=== PATIENT | female | born 1970 | race Hispanic/Latino ===

== ENCOUNTER 2019-06-24 16:44 | Emergency (ER) | payer SELFPAY | END 2019-06-24 17:41 | disposition home or self-care (01) | LOC: EDH 16:44 | DX: J20.9 Acute bronchitis, unspecified (principal); E11.9 Type 2 diabetes mellitus without complications; I10 Essential (primary) hypertension; E78.00 Pure hypercholesterolemia, unspecified; Z72.0 Tobacco use; Z88.0 Allergy status to penicillin | CPT/HCPCS: 93005 ==

== ENCOUNTER 2020-03-01 15:13 | Inpatient (IN) | payer SELFPAY ==
[~2020-03-01] VITALS: Ht 167.6 cm; Wt 71.1 kg
[2020-03-01 15:46] LABS: BASOPHILS % (AUTO) 0.6 % (0.0-5.0); EOSINOPHILS % (AUTO) 0.2 % (0.0-8.0); HEMATOCRIT 32.7 % (36-48); LYMPHOCYTES % (AUTO) 23.9 % (21.0-51.0); MEAN CORPUSCULAR HEMOGLOBIN 28.4 pg (27.0-33.0); MEAN CORPUSCULAR HGB CONC 32.4 g/dL (32.0-36.0); MEAN CORPUSCULAR VOLUME 87.7 fL (79-99); MONOCYTES % (AUTO) 4.6 % (3.0-13.0); NEUTROPHILS % (AUTO) 69.6 % (40.0-77.0); RED BLOOD CELL COUNT(AUTO) 3.73 MIL/uL (4.00-5.50); RED CELL DISTRIBUTION WIDTH 13.6 % (11.0-15.5)
[2020-03-01 15:53] LABS: APPEARANCE,URINE CLOUDY (CLEAR); BILIRUBIN,URINE NEGATIVE (NEGATIVE); COLOR,URINE YELLOW (YELLOW); GLUCOSE, URINE (UA) >=1000 mg/dL (NEGATIVE); KETONES,URINE NEGATIVE (NEGATIVE); LEUKOCYTE ESTERASE ,URINE MODERATE (NEGATIVE); NITRATE,URINE POSITIVE (NEGATIVE); OCCULT BLOOD,URINE MODERATE (NEGATIVE); PROTEIN,URINE TRACE mg/dL (NEGATIVE); UROBILINOGEN,URINE 0.2 mg/dL (0.2-1.0)
[2020-03-01 16:03] LABS: BACTERIA,URINE Few /HPF (None Seen); SQUAMOUS EPITHELIAL CELL,UR Rare /HPF (0-2); WBC,URINE 26-50 /HPF (0-1)
[2020-03-01 16:08] LABS: ALBUMIN 2.2 g/dL (3.5-5.0); BILIRUBIN,TOTAL 0.3 mg/dL (0.2-1.0); CREATININE 3.3 mg/dL (0.5-1.5); POTASSIUM 4.7 mmol/L (3.5-5.1); TOTAL PROTEIN, SERUM 10.6 g/dL (6.0-8.3)
[2020-03-01 16:11] LABS: PLATELET COUNT (AUTO) 831 K/uL (130-400)
[2020-03-01] MEDS ORDERED: LEVOFLOXACIN 500 MG/D5W 100 ML 100 ML ONE (17:45)
[2020-03-01] MEDS ORDERED: INSULIN HUMULIN R 100 UNIT/ML 3ML ONE ×2 (17:46→19:42)
[2020-03-01 17:53] LABS: ABG OXYGEN SATURATION 39.1 % (95.0-99.0); BASE EXCESS,VENOUS BLOOD GAS -9.1 (-2.0-3.0); HCO3,VENOUS BLOOD GAS 17.2 (21.0-28.0); PCO2,VENOUS BLOOD GAS 39 (32-45); PH,VENOUS BLOOD GAS 7.265 (7.350-7.450)
[2020-03-01] MEDS ORDERED: DEXTROSE 5 %-0.45 % NACL 1,000 ML IV PRN (18:47)
[2020-03-01] MEDS: SODIUM CHLORIDE 0.9% 1000ML 1,000 ML IV SCH ×2 (18:47→23:47)
[2020-03-01] MEDS ORDERED: INSULIN HUMULIN R 100 UNIT/ML 3ML IV SCH (19:00)
[2020-03-01] MEDS ORDERED: POTASSIUM CHLORIDE 10MEQ/100ML 100 ML IV PRN (19:00)
[2020-03-01 19:14] LABS: HEMOGLOBIN A1C 14.4 % (4.0-6.0)
[2020-03-01] MEDS ORDERED: MEROPENEM 1 GM VIAL IVP SCH (19:15)
[2020-03-01] MEDS ORDERED: LACTULOSE 20 GM/30 ML UDCUP PO PRN (19:15)
[2020-03-01] MEDS ORDERED: DIPHENHYDRAMINE HCL 25 MG CAPSULE PO PRN (19:15)
[2020-03-01] MEDS ORDERED: ACETAMINOPHEN 325 MG TAB PO PRN ×2 (19:15)
[2020-03-01] MEDS ORDERED: ONDANSETRON HCL 4 MG/2 ML VIAL IV PRN (19:15)
[2020-03-01] MEDS ORDERED: NITROGLYCERIN 0.4 MG SL TAB SL PRN (19:15)
[2020-03-01 19:30] LABS: CREATININE 2.7 mg/dL (0.5-1.5); MAGNESIUM 1.9 mg/dL (1.80-2.40); POTASSIUM 3.6 mmol/L (3.5-5.1)
[2020-03-01 19:34] LABS: INR 1.05 (0.85-1.15); PROTHROMBIN TIME 11.3 SEC (9.6-11.6)
[2020-03-01 19:40] LABS: CREATINE KINASE, TOTAL 13 U/L (21-232); MYOGLOBIN 38 ng/mL (10-92); TROPONIN I < 0.04 ng/mL (0.00-0.06)
[2020-03-01] MEDS ORDERED: LACTULOSE 20 GM/30 ML UDCUP ONE (19:40)
[2020-03-01] MEDS ORDERED: SODIUM CHLORIDE 0.9% 100 ML IV ONE (19:43)
[2020-03-01 19:51] LABS: ABG HCO3 16.4 mmol/L (21.0-28.0); ABG OXYGEN SATURATION 97.6 % (95.0-99.0); ABG PCO2 31 mmHg (32-45)
[2020-03-01] MEDS ORDERED: LACTULOSE 20 GM/30 ML UDCUP PO SCH (20:30)
[2020-03-01] MEDS ORDERED: LINEZOLID 600 MG/ISO-OSM 300 ML IV SCH (20:30)
[2020-03-01] MEDS ORDERED: HEPARIN SODIUM 5000UNIT/ML 1ML VIAL ONE (20:38)
[2020-03-01] MEDS ORDERED: FAMOTIDINE/PF 20 MG/2 ML VIAL IV ONE (20:38)
[2020-03-01] MEDS ORDERED: HEPARIN SODIUM 5000UNIT/ML 1ML VIAL SQ SCH (21:00)
[2020-03-01] MEDS: FAMOTIDINE/PF 20 MG/2 ML VIAL IV SCH (21:00)
[2020-03-01 23:01] LABS: CREATININE 2.5 mg/dL (0.5-1.5); POTASSIUM 3.5 mmol/L (3.5-5.1)
[2020-03-01 23:25] LABS: BASE EXCESS,VENOUS BLOOD GAS -7.8 (-2.0-3.0); HCO3,VENOUS BLOOD GAS 18.1 (21.0-28.0); PCO2,VENOUS BLOOD GAS 38 (32-45); PH,VENOUS BLOOD GAS 7.294 (7.350-7.450)
[2020-03-02] VITALS (29 sets, daily range): BP systolic 91–153; BP diastolic 60–86
[2020-03-02 02:56] LABS: ABG OXYGEN SATURATION 86.6 % (95.0-99.0); BASE EXCESS,VENOUS BLOOD GAS -7.6 (-2.0-3.0); HCO3,VENOUS BLOOD GAS 16.6 (21.0-28.0); PCO2,VENOUS BLOOD GAS 31 (32-45); PH,VENOUS BLOOD GAS 7.349 (7.350-7.450)
[2020-03-02 03:13] LABS: HEMATOCRIT 28.3 % (36-48); MEAN CORPUSCULAR HGB CONC 32.9 g/dL (32.0-36.0); MEAN CORPUSCULAR VOLUME 88.2 fL (79-99); RED BLOOD CELL COUNT(AUTO) 3.21 MIL/uL (4.00-5.50); RED CELL DISTRIBUTION WIDTH 13.6 % (11.0-15.5); WHITE BLOOD COUNT (AUTO) 16.1 K/uL (4.8-10.8)
[2020-03-02 03:16] LABS: PLATELET COUNT (AUTO) 707 K/uL (130-400)
[2020-03-02] MEDS: SODIUM CHLORIDE 0.9% 1000ML 1,000 ML IV SCH ×3 (03:19→21:26)
[2020-03-02 03:23] LABS: BAND NEUTROPHILS % (MANUAL) 5 % (0-2); BASOPHILS % (MANUAL) 2 % (0-2); LYMPHOCYTES % (MANUAL) 17 % (22-44); MAN.DIFF COMMENT-IMPRESSION MANUAL DIFFERENTIAL; MONOCYTES % (MANUAL) 3 % (2-9); PLATELET MORPHOLOGY COMMENT IN; SEGMENTED NEUTROPHILS % 73 % (40-70)
[2020-03-02 03:30] LABS: CREATININE 2.5 mg/dL (0.5-1.5); MAGNESIUM 1.7 mg/dL (1.80-2.40); POTASSIUM 3.3 mmol/L (3.5-5.1)
[2020-03-02] MEDS ORDERED: MAGNESIUM 2GM PREMIX 50ML 50 ML IV SCH (04:00)
[2020-03-02] MEDS ORDERED: POTASSIUM CHLORIDE 10MEQ/100ML 10 MEQ/100 ML ML IV SCH (04:00)
[2020-03-02] MEDS ORDERED: PHARMACY COMMUNICATION MISC SCH (07:00)
[2020-03-02] MEDS ORDERED: INSULIN REGULAR, HUMAN 3ML 100 UNIT in SODIUM CHLORIDE 0.9% 99 ML IV PRN ×2 (07:15)
[2020-03-02] MEDS ORDERED: LINEZOLID 600 MG/ISO-OSM 300 ML IV SCH (08:00)
[2020-03-02] MEDS: LEVOFLOXACIN 500 MG/D5W 100 ML 100 ML IV SCH (09:13)
[2020-03-02] MEDS: INSULIN GLARGINE 100 UNITS/ML 10 ML VIAL SQ SCH ×2 (10:11→21:30)
--- NOTE | 2020-03-02 11:04 | NUR ---
CHART CHECK COMPLETED. Pt IS A 49 Y.O. FEMALE ADMITTED FOR PYELONEPHRITIS, SEVERE SEPSIS, HYPONATREMIA, AND DKA. Pt HAS A PAST MEDICAL HISTORY SIGNIFICANT FOR DMII, HYPERTENSION, AND HLD. Pt CURRENTLY NPO DUE TO ADMITTING DIAGNOSIS. PLEASE REQUEST FOR A FORMAL SPEECH/SWALLOW EVALUATION IF Pt PRESENTS WITH +S/S OF ASPIRATION OF COUGH RESPONSE, THROAT CLEAR OR WET VOCAL QUALITY. Addendum: 03/02/20 at 1109 by ALDEN PIERCE, [facility] Amended: Links added.
[2020-03-02] MEDS ORDERED: SUCCINYLCHOLINE CHLORIDE 20 MG/ML 10 ML VIAL ONE (11:34)
[2020-03-02] MEDS ORDERED: LIDOCAINE PF 2% 5ML ABBOJECT ONE ×2 (11:34→14:44)
[2020-03-02] MEDS ORDERED: DEXAMETHASONE SOD PHOSPHATE 10MG/ML 1ML VIAL ONE ×2 (11:34→11:37)
[2020-03-02] MEDS ORDERED: MIDAZOLAM HCL 1 MG/ML 2ML VIAL ONE ×2 (11:35→14:44)
[2020-03-02] MEDS ORDERED: NEOSTIGMINE 5MG/5ML SYR IV ONE (11:35)
[2020-03-02] MEDS ORDERED: ROCURONIUM 10MG/1ML SYR 10 MG/ML ML ONE (11:35)
[2020-03-02] MEDS ORDERED: ONDANSETRON HCL 4 MG/2 ML VIAL ONE (11:35)
[2020-03-02] MEDS ORDERED: GLYCOPYRROLATE 1 MG/5 ML SYRINGE ONE (11:35)
[2020-03-02] MEDS ORDERED: FENTANYL CITRATE PF 50 MCG/1 ML 2ML VIAL ONE ×2 (11:35→14:44)
[2020-03-02] MEDS ORDERED: PROPOFOL 10 MG/ML 20ML VIAL IV ONE ×2 (11:35→14:44)
[2020-03-02] MEDS: LINEZOLID 600 MG/ISO-OSM 300 ML IV SCH ×2 (11:43→22:21)
--- NOTE | 2020-03-02 11:55 | NUR ---
PATIENT TAKEN TO OR BY OR STAFF FOR RIGHT GLUTEAL ABSCESS WOUND DEBRIDEMENT.
[2020-03-02] MEDS: INSULIN HUMULIN R 100 UNIT/ML 3ML SQ SCH ×3 (12:00→22:00)
[2020-03-02 13:05] LABS: CREATININE 2.2 mg/dL (0.5-1.5); POTASSIUM 4.1 mmol/L (3.5-5.1)
--- NOTE | 2020-03-02 15:45 | NUR ---
PT A/A X 3 DRESSING IS DRY AND INTACT, NO PAIN AT THIS TIME WILL CONTINUE TO MONITOR
--- NOTE | 2020-03-02 16:00 | NUR ---
PT SITTING UP IN BED WATCHING TV, DRESSING DRY AND INTACT.
--- NOTE | 2020-03-02 16:15 | NUR ---
PT HAS NO COMPLICATIONS V/S ARE STABLE
--- NOTE | 2020-03-02 16:30 | NUR ---
PT IS IN BED RESTING AND WATCHING TV NO COMPLAINTS OF PAIN, DRESSING DRY AND INTACT
--- NOTE | 2020-03-02 17:00 | NUR ---
PT SITTING UP EATING DINNER AND WATCHING TV, V/S STABLE
--- NOTE | 2020-03-02 17:30 | NUR ---
PT TOLERATED DINNER WELL, V/S STABLE DRESSING DRY AND INTACT WILL CONTINUE TO MONITOR.
--- NOTE | 2020-03-02 18:30 | NUR ---
PT CONTINUES TO REST COMFORTABLY IN BED, V/S STABLE DRESSING DRY AND INTACT, NO PAIN AT THIS TIME.
[2020-03-02] MEDS ORDERED: POTASSIUM CHLORIDE 20MEQ/100ML 100 ML IV PRN (21:15)
[2020-03-02] MEDS ORDERED: LIDOCAINE HCL-MPF 1% 2ML VIAL IV PRN (21:15)
[2020-03-02] MEDS ORDERED: POTASSIUM CHLORIDE 20 MEQ ERTAB PO PRN (21:15)
[2020-03-02] MEDS ORDERED: POTASSIUM CHLORIDE 10% ELIXIR 20 MEQ/15 ML UDCUP PO PRN (21:15)
--- NOTE | 2020-03-02 21:30 | NUR ---
MEDS SHIFT ASSESSMENT DONE, PLEASE REFER TO CHART. DUE MEDS ADMINISTERED, TOLERATED WELL. KEPT RESTED AND COMFORTABLE, CALL LIGHT WITHIN REACH. WILL MONITOR PT. Addendum: 03/03/20 at 0452 by KRISTA AMAYA RN RN Amended: Links added.
[2020-03-03 01:48] VITALS: BP 170/96
--- NOTE | 2020-03-03 02:00 | NUR ---
ROUNDS PT RESTING WELL, FAIRLY ASLEEP. NO DISTRESS NOTED. KEPT RESTED AND COMFORTABLE. CALL LIGHT WITHIN REACH. WILL MONITOR PT.
[2020-03-03 03:28] VITALS: BP 143/80
[2020-03-03] MEDS: SODIUM CHLORIDE 0.9% 1000ML 1,000 ML IV SCH ×2 (04:16→16:38)
[2020-03-03 05:55] LABS: HEMATOCRIT 28.9 % (36-48); MEAN CORPUSCULAR HEMOGLOBIN 28.7 pg (27.0-33.0); MEAN CORPUSCULAR HGB CONC 31.1 g/dL (32.0-36.0); RED BLOOD CELL COUNT(AUTO) 3.14 MIL/uL (4.00-5.50); RED CELL DISTRIBUTION WIDTH 14.2 % (11.0-15.5); WHITE BLOOD COUNT (AUTO) 13.3 K/uL (4.8-10.8)
[2020-03-03] MEDS: INSULIN GLARGINE 100 UNITS/ML 10 ML VIAL SQ SCH ×2 (06:08→22:34)
[2020-03-03] MEDS: INSULIN HUMULIN R 100 UNIT/ML 3ML SQ SCH ×4 (06:08→21:00)
--- NOTE | 2020-03-03 06:10 | NUR ---
MEDS AWAKENED PT FOR DUE MEDS, ADMINISTERED, TOLERATED WELL. NO CONCERNS VERBALIZED. KEPT COMFORTABLE. FOR MORE CARE.
[2020-03-03 06:16] LABS: CREATININE 2.1 mg/dL (0.5-1.5)
[2020-03-03 07:50] VITALS: BP 129/78
[2020-03-03] MEDS: LEVOFLOXACIN 500 MG/D5W 100 ML 100 ML IV SCH (10:00)
[2020-03-03] MEDS: FAMOTIDINE/PF 20 MG/2 ML VIAL IV SCH (10:00)
[2020-03-03] MEDS: HEPARIN SODIUM 5000UNIT/ML 1ML VIAL SQ SCH ×2 (10:05→22:34)
[2020-03-03 11:27] VITALS: BP 121/79
[2020-03-03] MEDS: LINEZOLID 600 MG/ISO-OSM 300 ML IV SCH ×2 (12:00→22:37)
--- NOTE | 2020-03-03 12:25 | NUR ---
DCP CM spoke to pt discussed dc plans. Pt is independent prior to admission, lives at home with spouse and daughter. Denies any equipments/services. Feels safe to go back home, still drives, spouse able to assist with transportation and needs as necessary. DC plan to home once stable. CM to cont to follow up. Addendum: 03/03/20 at 1226 by FAITH MCKEE LVN CM Amended: Links added.
[2020-03-03 16:00] VITALS: BP 125/66
--- NOTE | 2020-03-03 17:30 | NUR ---
Wound Care Instruction: Patient's son, Gustavo Kasper, instructed on proper aseptic technique for dressing change, wet to dry gauze packing to Rt buttock, BID. Son verbalized understanding and able to verbalize steps of instruction.
[2020-03-03 20:00] VITALS: BP 128/72
[2020-03-04] VITALS (7 sets, daily range): BP systolic 125–148; BP diastolic 70–84
[2020-03-04] MEDS: SODIUM CHLORIDE 0.9% 1000ML 1,000 ML IV SCH (01:34)
--- NOTE | 2020-03-04 04:30 | NUR ---
Wet to Dry Dressing: Dressing removed to Right butt. Scant amount of blood noted on dressing. Wound is 3.0 cm wide, 2.0 cm in length and 0.5 cm in depth with no drainage or odor noted. Wound noted to have pink granulation tissue present on borders. Wet to dry 4x4 applied to wound using aseptic technique per order. Wound covered with ABD pad. Patient tolerated the procedure well.
[2020-03-04] MEDS: INSULIN HUMULIN R 100 UNIT/ML 3ML SQ SCH ×4 (06:04→21:03)
[2020-03-04] MEDS: INSULIN GLARGINE 100 UNITS/ML 10 ML VIAL SQ SCH ×2 (06:06→20:14)
[2020-03-04] MEDS: HEPARIN SODIUM 5000UNIT/ML 1ML VIAL SQ SCH ×2 (09:20→20:27)
[2020-03-04] MEDS: LEVOFLOXACIN 500 MG/D5W 100 ML 100 ML IV SCH (09:22)
[2020-03-04] MEDS: MEROPENEM 1 GM VIAL IVP SCH ×2 (12:13→20:16)
--- NOTE | 2020-03-04 16:27 | NUR ---
Nutrition Note: RD consulted for ADA diet d/t uncontrolled T2DM with A1C 14.4. Pt was admitted with acute pyelonephritis and would to buttocks s/p abscess drainage. Current diet; 60gm CCD, renal non HD. Intake is 75-100% of meals with intolerance noted. Attempted to call patient to identify educational needs not answer. Recommend: Continue 60gm CCD/renal non HD, add no concentrated sweets. 1 packet of Elijah at lunch with 8oz of water for wound healing. Outpatient referral for Nutrition consultation for uncontrolled T2DM Addendum: 03/04/20 at [address] Amended: Links added.
[2020-03-05] MEDS: SODIUM CHLORIDE 0.9% 1000ML 1,000 ML IV SCH ×2 (02:05→09:31)
--- NOTE | 2020-03-05 02:56 | NUR ---
wound care done on right buttock with 4x4 wet to dry and medical tape. no issues.
[2020-03-05 04:00] VITALS: BP 152/79
[2020-03-05 04:38] LABS: BASOPHILS % (AUTO) 0.7 % (0.0-5.0); EOSINOPHILS % (AUTO) 0.8 % (0.0-8.0); HEMATOCRIT 29.1 % (36-48); LYMPHOCYTES % (AUTO) 30.4 % (21.0-51.0); MEAN CORPUSCULAR HEMOGLOBIN 28.6 pg (27.0-33.0); MEAN CORPUSCULAR HGB CONC 31.6 g/dL (32.0-36.0); MEAN CORPUSCULAR VOLUME 90.4 fL (79-99); MONOCYTES % (AUTO) 8.2 % (3.0-13.0); NEUTROPHILS % (AUTO) 59.1 % (40.0-77.0); PLATELET COUNT (AUTO) 645 K/uL (130-400); RED BLOOD CELL COUNT(AUTO) 3.22 MIL/uL (4.00-5.50); RED CELL DISTRIBUTION WIDTH 14.6 % (11.0-15.5); WHITE BLOOD COUNT (AUTO) 13.2 K/uL (4.8-10.8)
[2020-03-05 05:09] LABS: ALBUMIN 1.7 g/dL (3.5-5.0); BILIRUBIN,TOTAL 0.2 mg/dL (0.2-1.0); POTASSIUM 3.6 mmol/L (3.5-5.1); TOTAL PROTEIN, SERUM 8.3 g/dL (6.0-8.3)
[2020-03-05] MEDS: INSULIN HUMULIN R 100 UNIT/ML 3ML SQ SCH ×4 (05:19→19:39)
[2020-03-05] MEDS: INSULIN GLARGINE 100 UNITS/ML 10 ML VIAL SQ SCH ×2 (05:19→19:37)
[2020-03-05 08:25] VITALS: BP 160/84
[2020-03-05] MEDS: FAMOTIDINE/PF 20 MG/2 ML VIAL IV SCH (09:28)
[2020-03-05] MEDS: HEPARIN SODIUM 5000UNIT/ML 1ML VIAL SQ SCH ×2 (09:30→19:37)
[2020-03-05] MEDS: MEROPENEM 1 GM VIAL IVP SCH ×2 (11:21→19:45)
[2020-03-05 12:00] VITALS: BP 156/78
[2020-03-05 16:00] VITALS: BP 125/79
[2020-03-05 19:54] VITALS: BP 142/82
[2020-03-06 00:16] VITALS: BP 127/67
[2020-03-06] MEDS: SODIUM CHLORIDE 0.9% 1000ML 1,000 ML IV SCH ×2 (03:35→03:44)
--- NOTE | 2020-03-06 03:47 | NUR ---
wound care conducted on patient's right buttock with normal saline and gauze packing wet-to-dry dressing with medical tape. wound looks pink and moist, better than last night that it had yellow pus and a foul smell. no issues.
[2020-03-06 04:00] VITALS: BP 145/87
[2020-03-06 05:49] LABS: BASOPHILS % (AUTO) 0.8 % (0.0-5.0); EOSINOPHILS % (AUTO) 1.2 % (0.0-8.0); HEMATOCRIT 29.3 % (36-48); LYMPHOCYTES % (AUTO) 32.8 % (21.0-51.0); MEAN CORPUSCULAR HEMOGLOBIN 28.5 pg (27.0-33.0); MEAN CORPUSCULAR HGB CONC 31.7 g/dL (32.0-36.0); MEAN CORPUSCULAR VOLUME 89.9 fL (79-99); MONOCYTES % (AUTO) 8.3 % (3.0-13.0); NEUTROPHILS % (AUTO) 56.5 % (40.0-77.0); PLATELET COUNT (AUTO) 664 K/uL (130-400); RED BLOOD CELL COUNT(AUTO) 3.26 MIL/uL (4.00-5.50); RED CELL DISTRIBUTION WIDTH 14.6 % (11.0-15.5)
[2020-03-06] MEDS: INSULIN HUMULIN R 100 UNIT/ML 3ML SQ SCH ×4 (05:49→21:21)
[2020-03-06] MEDS: INSULIN GLARGINE 100 UNITS/ML 10 ML VIAL SQ SCH ×2 (05:52→20:11)
[2020-03-06 06:15] LABS: CREATININE 1.8 mg/dL (0.5-1.5); POTASSIUM 3.5 mmol/L (3.5-5.1)
[2020-03-06 06:21] LABS: ALBUMIN 1.8 g/dL (3.5-5.0); BILIRUBIN,TOTAL 0.2 mg/dL (0.2-1.0); TOTAL PROTEIN, SERUM 8.5 g/dL (6.0-8.3)
[2020-03-06 08:00] VITALS: BP 147/80
[2020-03-06] MEDS: HEPARIN SODIUM 5000UNIT/ML 1ML VIAL SQ SCH ×2 (08:24→20:12)
[2020-03-06] MEDS: MEROPENEM 1 GM VIAL IVP SCH ×2 (11:56→20:18)
[2020-03-06 12:00] VITALS: BP 137/73
[2020-03-06 16:00] VITALS: BP 153/93
[2020-03-06 19:51] VITALS: BP 140/67
[2020-03-07 00:15] VITALS: BP 124/69
--- NOTE | 2020-03-07 03:26 | NUR ---
wound care conducted with saline, gauze, wet to dry. pictures taken and placed on chart. wound measures 6 cm in length, 3 cm in width, and 2 cm in depth.
[2020-03-07 03:51] VITALS: BP 138/73
[2020-03-07] MEDS: SODIUM CHLORIDE 0.9% 1000ML 1,000 ML IV SCH (05:21)
[2020-03-07 05:35] LABS: BASOPHILS % (AUTO) 0.9 % (0.0-5.0); EOSINOPHILS % (AUTO) 1.7 % (0.0-8.0); HEMATOCRIT 29.2 % (36-48); LYMPHOCYTES % (AUTO) 35.2 % (21.0-51.0); MEAN CORPUSCULAR HEMOGLOBIN 29.2 pg (27.0-33.0); MEAN CORPUSCULAR HGB CONC 32.5 g/dL (32.0-36.0); MEAN CORPUSCULAR VOLUME 89.8 fL (79-99); NEUTROPHILS % (AUTO) 52.8 % (40.0-77.0); PLATELET COUNT (AUTO) 624 K/uL (130-400); RED BLOOD CELL COUNT(AUTO) 3.25 MIL/uL (4.00-5.50); RED CELL DISTRIBUTION WIDTH 14.5 % (11.0-15.5); WHITE BLOOD COUNT (AUTO) 11.5 K/uL (4.8-10.8)
[2020-03-07] MEDS: INSULIN HUMULIN R 100 UNIT/ML 3ML SQ SCH ×4 (05:39→20:59)
[2020-03-07] MEDS: INSULIN GLARGINE 100 UNITS/ML 10 ML VIAL SQ SCH ×2 (05:42→20:59)
[2020-03-07 06:28] LABS: ALBUMIN 1.8 g/dL (3.5-5.0); BILIRUBIN,TOTAL 0.2 mg/dL (0.2-1.0); CREATININE 1.6 mg/dL (0.5-1.5); POTASSIUM 3.5 mmol/L (3.5-5.1); TOTAL PROTEIN, SERUM 8.4 g/dL (6.0-8.3)
[2020-03-07 08:26] VITALS: BP 146/80
[2020-03-07] MEDS: HEPARIN SODIUM 5000UNIT/ML 1ML VIAL SQ SCH ×2 (08:47→21:00)
[2020-03-07] MEDS: FAMOTIDINE/PF 20 MG/2 ML VIAL IV SCH (08:49)
[2020-03-07] MEDS: MEROPENEM 1 GM VIAL IVP SCH ×2 (11:30→23:54)
[2020-03-07 11:38] VITALS: BP 143/69
[2020-03-07 16:00] VITALS: BP 148/75
[2020-03-07 19:30] VITALS: BP 120/70
[2020-03-08] VITALS: BP 136/77
[2020-03-08] MEDS: SODIUM CHLORIDE 0.9% 1000ML 1,000 ML IV SCH ×2 (03:38→15:15)
[2020-03-08 04:00] VITALS: BP 131/78
[2020-03-08 04:57] LABS: BASOPHILS % (AUTO) 0.8 % (0.0-5.0); EOSINOPHILS % (AUTO) 2.2 % (0.0-8.0); HEMATOCRIT 29.6 % (36-48); LYMPHOCYTES % (AUTO) 42.2 % (21.0-51.0); MEAN CORPUSCULAR HEMOGLOBIN 28.3 pg (27.0-33.0); MEAN CORPUSCULAR HGB CONC 31.4 g/dL (32.0-36.0); MONOCYTES % (AUTO) 10.2 % (3.0-13.0); NEUTROPHILS % (AUTO) 44.3 % (40.0-77.0); PLATELET COUNT (AUTO) 648 K/uL (130-400); RED BLOOD CELL COUNT(AUTO) 3.29 MIL/uL (4.00-5.50); RED CELL DISTRIBUTION WIDTH 14.6 % (11.0-15.5); WHITE BLOOD COUNT (AUTO) 10.9 K/uL (4.8-10.8)
--- NOTE | 2020-03-08 05:10 | NUR ---
Wet to Dry Dressing: Dressing removed to Right butt. Minimal amount of blood noted on dressing. No drainage or odor noted. Wound noted to have pinkish-red granulation tissue present on borders. Wet to dry 4x4 applied to wound using aseptic technique per order. Patient tolerated the procedure well. No discomfort noted.
[2020-03-08 05:25] LABS: ALBUMIN 1.9 g/dL (3.5-5.0); BILIRUBIN,TOTAL 0.2 mg/dL (0.2-1.0); CREATININE 1.8 mg/dL (0.5-1.5); POTASSIUM 3.5 mmol/L (3.5-5.1); TOTAL PROTEIN, SERUM 8.4 g/dL (6.0-8.3)
[2020-03-08] MEDS: INSULIN HUMULIN R 100 UNIT/ML 3ML SQ SCH ×3 (06:03→16:45)
[2020-03-08] MEDS: INSULIN GLARGINE 100 UNITS/ML 10 ML VIAL SQ SCH (06:17)
[2020-03-08 08:30] VITALS: BP 141/83
[2020-03-08] MEDS: HEPARIN SODIUM 5000UNIT/ML 1ML VIAL SQ SCH (09:45)
[2020-03-08] MEDS: MEROPENEM 1 GM VIAL IVP SCH (10:30)
[2020-03-08 12:04] VITALS: BP 165/79
[2020-03-08 13:44] VITALS: BP 128/69
--- NOTE | 2020-03-08 18:40 | NUR ---
DISCHARGE SUMMARY REVIEW WITH PT. CARA . INSTRUCTIONS DONE, WOUND CARE TO HER RT BUTTOCK DONE . REMOVE THE WET GAUZE AND PLACE WITH A WET DRSG TO DRY AND SECURE WITH MEDIPORE TAPED CLEAN INSIDE ,AND NOTED NO DRAINAGE NOTED . TOLERATE WEEL PER PT . INFORMATION SON WILL BE DOING . THE WOUND CARE, .. SL ALSO TO THE RFA DC NOTED NO HEMATOMA OR REDNESS A SM DRSG APPLICATION ON . INSTRUCTION TO FOLLOW WITH SOLOMON BELCHER , DR. GONZALEZ , AND WOUND CARE TO BE DONE . AND ASSESS PER DR GONZALEZ . DISCHARGE WITH FAMILY
== END 2020-03-08 18:40 | disposition home or self-care (01) | DRG 570 ==
LOC: EDH 15:13 → EDHIP 19:13 → DAHIP 03-02 00:18 → 3BH 03-02 14:59 → 3DH 03-03 15:43
PROVIDERS: ADMIT Internal Medicine; ATTEND Internal Medicine
PROC: 0JB90ZZ Excision of Buttock Subcutaneous Tissue and Fascia, Open Approach (ICD-10-PCS; principal; 2020-03-02 14:50)
DX: L02.31 Cutaneous abscess of buttock (principal); E11.10 Type 2 diabetes mellitus with ketoacidosis without coma; N10 Acute pyelonephritis; N17.9 Acute kidney failure, unspecified; E87.1 Hypo-osmolality and hyponatremia; N13.6 Pyonephrosis; E11.22 Type 2 diabetes mellitus with diabetic chronic kidney disease; E66.9 Obesity, unspecified; E78.5 Hyperlipidemia, unspecified; I12.9 Hypertensive chronic kidney disease with stage 1 through stage 4 chronic kidney disease, or unspecified chronic kidney disease; K56.41 Fecal impaction; N18.3 Chronic kidney disease, stage 3 (moderate); Z68.33 Body mass index [BMI] 33.0-33.9, adult; Z88.0 Allergy status to penicillin; D72.829 Elevated white blood cell count, unspecified
CPT/HCPCS: 36415; 36600; 71045; 74176; 76705; 80048; 80053; 81001; 81025; 82010; 82150; 82435; 82550; 82803; 82947; 82948; 83036; 83605; 83690; 83735; 83874; 83930; 84132; 84295; 84484; 85025; 85027; 85610; 87040; 87070; 87076; 87077; 87088; 87186; 93005; G0378; J0330; J1100; J1644; J1815; J1956; J2001; J2020; J2185; J2250; J2405; J2704; J2710; J3010; J3475; J3490; J7030; J7042

== ENCOUNTER 2020-03-15 17:22 | Inpatient (IN) | payer OTHER ==
[~2020-03-15] VITALS: Ht 162.6 cm; Wt 94.8 kg
[2020-03-15 18:14] LABS: APPEARANCE,URINE Cloudy (CLEAR); BILIRUBIN,URINE Negative (NEGATIVE); COLOR,URINE Yellow (YELLOW); GLUCOSE, URINE (UA) >=1000 mg/dL (NEGATIVE); KETONES,URINE Negative (NEGATIVE); LEUKOCYTE ESTERASE ,URINE Large (NEGATIVE); NITRATE,URINE Negative (NEGATIVE); OCCULT BLOOD,URINE Trace (NEGATIVE); PH,URINE 5.5 (5.0-8.0); PROTEIN,URINE Negative (NEGATIVE); UROBILINOGEN,URINE 0.2 mg/dL (0.2-1.0)
[2020-03-15 18:17] LABS: HCG,QUAL RESULT NEGATIVE (NEGATIVE)
[2020-03-15] MEDS ORDERED: KETOROLAC TROMETHAMINE 30MG/ML ONE (18:17)
[2020-03-15] MEDS ORDERED: SODIUM CHLORIDE 0.9% 1000ML 1,000 ML IV ONE ×2 (18:18→18:54)
[2020-03-15 18:25] LABS: BACTERIA,URINE Few /HPF (None Seen); SQUAMOUS EPITHELIAL CELL,UR Rare /HPF (0-2); WBC,URINE 26-50 /HPF (0-1)
[2020-03-15 18:26] LABS: CREATININE 1.4 mg/dL (0.5-1.5); POTASSIUM 3.7 mmol/L (3.5-5.1)
[2020-03-15 18:27] LABS: BASOPHILS % (AUTO) 0.8 % (0.0-5.0); EOSINOPHILS % (AUTO) 2.4 % (0.0-8.0); INR 0.89 (0.85-1.15); LYMPHOCYTES % (AUTO) 49.8 % (21.0-51.0); MEAN CORPUSCULAR HEMOGLOBIN 29.4 pg (27.0-33.0); MEAN CORPUSCULAR HGB CONC 32.1 g/dL (32.0-36.0); MEAN CORPUSCULAR VOLUME 91.7 fL (79-99); MONOCYTES % (AUTO) 7.4 % (3.0-13.0); NEUTROPHILS % (AUTO) 39.2 % (40.0-77.0); PARTIAL THROMBOPLASTIN TIME 29.4 SEC (26.3-35.5); PLATELET COUNT (AUTO) 602 K/uL (130-400); PROTHROMBIN TIME 9.7 SEC (9.6-11.6); RED CELL DISTRIBUTION WIDTH 15.7 % (11.0-15.5); WHITE BLOOD COUNT (AUTO) 13.5 K/uL (4.8-10.8)
[2020-03-15 18:30] LABS: ALBUMIN 2.4 g/dL (3.5-5.0); BILIRUBIN,TOTAL 0.2 mg/dL (0.2-1.0); TOTAL PROTEIN, SERUM 8.8 g/dL (6.0-8.3)
[2020-03-15] MEDS ORDERED: INSULIN HUMULIN R 100 UNIT/ML 3ML ONE (18:55)
[2020-03-15] MEDS ORDERED: LIDOCAINE HCL 1% 20 ML VIAL ONE (19:21)
[2020-03-15] MEDS ORDERED: LEVOFLOXACIN 500 MG/D5W 100 ML 100 ML ONE (19:33)
[2020-03-15] MEDS: SODIUM CHLORIDE 0.9% 1000ML 1,000 ML IV SCH (20:23)
[2020-03-15] MEDS ORDERED: VANCOMYCIN PROTOCOL PER PHARMACY IV PRN (20:30)
[2020-03-15] MEDS ORDERED: ACETAMINOPHEN 325 MG TAB PO PRN ×2 (20:30)
[2020-03-15] MEDS ORDERED: LACTULOSE 20 GM/30 ML UDCUP PO PRN (20:30)
[2020-03-15] MEDS ORDERED: ACETAMINOPHEN-CODEINE 300/30MG TAB PO PRN (20:30)
[2020-03-15] MEDS ORDERED: VANCOMYCIN 1GM+NS 250ML 250 ML IV SCH (20:30)
[2020-03-15 20:43] LABS: HEMOGLOBIN A1C 13.2 % (4.0-6.0)
[2020-03-15] MEDS ORDERED: LEVOFLOXACIN 500 MG/D5W 100 ML 100 ML IV SCH (20:45)
[2020-03-15] MEDS ORDERED: ZOSYN 3.375GM+NS 50ML 50 ML IV SCH (21:00)
[2020-03-15] MEDS: INSULIN LISPRO 100 UNIT/ML 3ML SQ SCH (21:00)
[2020-03-15] MEDS: FAMOTIDINE 20MG TAB 20 MG TAB PO SCH (21:00)
[2020-03-15] MEDS ORDERED: PHARMACY COMMUNICATION MISC SCH (21:00)
[2020-03-15] MEDS: INSULIN GLARGINE 100 UNITS/ML 10 ML VIAL SQ SCH (21:00)
[2020-03-15] MEDS ORDERED: VANCOMYCIN 1GM+NS 250ML 250 ML IV ONE (21:53)
[2020-03-15] MEDS: METRONIDAZOLE 500MG/100ML BAG 100 ML IV SCH (22:00)
[2020-03-15 22:04] LABS: CRP QUANTITATIVE 31.4 mg/L (0.00-9.0)
[2020-03-15] MEDS ORDERED: FAMOTIDINE 20MG TAB 20 MG TAB ONE (22:40)
[2020-03-15] MEDS ORDERED: METRONIDAZOLE 500MG/100ML BAG 100 ML ONE (23:58)
[2020-03-16 01:10] VITALS: BP 141/61
--- NOTE | 2020-03-16 01:56 | NUR ---
ABSCESS Pt came in with abscess to rt buttocks measures 3 cmx 2 cm,4 cm depth.Appears red with small amt of sanguinous drainage,cleansed with Ns,wet to dry dressing applied. Left buttocks measures 1 cmx 1 cm,4 cm depth,packing from Er with Iodoform gauze replaced,small amount of sanguinous drainage noted.No foul smell.Covered with 4x4 and paper tape.Pt kentrell well.
[2020-03-16] MEDS ORDERED: VANCOMYCIN PROTOCOL PER PHARMACY IV SCH (02:00)
--- NOTE | 2020-03-16 02:52 | NUR ---
PHOTO Pictures of wound taken,no printer available. Addendum: 03/16/20 at 0420 by DANNY HAGER RN RN WAS ABLE TO PRINT BLACK AND WHITE PICTURES OF THE WOUNDS,FILED ON CHART.
[2020-03-16] MEDS ORDERED: METRONIDAZOLE 500MG/100ML BAG 100 ML ONE (03:18)
[2020-03-16 04:00] VITALS: BP 133/66
--- NOTE | 2020-03-16 04:20 | NUR ---
Activity Pt.ambulates to the bathroom well.
[2020-03-16] MEDS: METRONIDAZOLE 500MG/100ML BAG 100 ML IV SCH ×3 (05:01→21:41)
[2020-03-16] MEDS: SODIUM CHLORIDE 0.9% 1000ML 1,000 ML IV SCH ×2 (05:02→10:30)
--- NOTE | 2020-03-16 06:19 | NUR ---
MD Dr LLAMAS came to see pt.
[2020-03-16] MEDS: INSULIN LISPRO 100 UNIT/ML 3ML SQ SCH ×7 (06:22→21:41)
--- NOTE | 2020-03-16 08:00 | NUR ---
ASSESSMENT PT AMBULATES VERY WELL TO BATHROOM. DENIES ANY PAIN AT THIS TIME. CALL LIGHT WITHIN REACH
[2020-03-16] MEDS ORDERED: COMPOUND IV REFRIGERATED 1 EACH IVSOLN MISC PRN (08:30)
[2020-03-16 08:53] VITALS: BP 152/80
--- NOTE | 2020-03-16 10:15 | NUR ---
CONSULT DR. ORELLANA MADE AWARE OF CONSULT.
[2020-03-16] MEDS: FAMOTIDINE 20MG TAB 20 MG TAB PO SCH ×2 (10:23→21:40)
[2020-03-16] MEDS: ENOXAPARIN SODIUM 40 MG/0.4 ML SYRINGE SQ SCH (10:29)
--- NOTE | 2020-03-16 10:30 | NUR ---
[facility] MADE AWARE OF CONSULT
--- NOTE | 2020-03-16 11:41 | NUR ---
RD NOTIFICATION Pt admitted with Sepsis d/t L-Abscess and UTI, Uncontrolled DM. Pt with 60gm CCD, Renal Non Dialysis, NCS diet order in place. Pt receives Elijah Packet QD. Obesity Class II (BMI 36.9). Recommend 500mg Vitamin C (BID) Recommend RN-ASSISTED DIABETES NUTRITION EDUCATION DUE TO ISOLATION PROTOCOL. HANDOUT CAN BE FOUND ON SHARED DRIVE -> NUTRITION CARE MANUAL -> DIABETES -> TYPE 2 DIABETES NUTRITION THERAPY Recommend continue current diet order. RD to continue to monitor. Please notify as additional nutrition concerns arise. Thank you.
[2020-03-16 12:00] VITALS: BP 157/77
--- NOTE | 2020-03-16 13:11 | NUR ---
DR. VICENTE CASIANO HERE TO SEE PT. SEE ORDERS.
--- NOTE | 2020-03-16 13:22 | NUR ---
CHART CHECK COMPLETED. Pt IS A 49 Y.O. FEMALE ADMITTED SECONDARY TO SEPSIS DUE TO L ABSCESS AND UTI. Pt HAS A PAST MEDICAL HISTORY SIGNIFICANT FOR DMII, HTN,HLD,DIABETIC NEUROPATHY, GLAUCOMA, INCISION AND DRAINAGE OF R GLUTEAL ABSCESS. Pt CURRENTLY ON REGULAR TEXTURE,THIN LIQUID DIET (HEART HEALTHY, RENAL PRE, NCS). PLEASE REQUEST FORMAL SKILLED SPEECH/SWALLOW EVALUATION IF Pt PRESENTS WITH +S/S OF ASPIRATION SUCH COUGH RESPONSE, THROAT CLEAR, OR WET VOCAL QUALITY DURING P.O. Addendum: 03/16/20 at 1326 by ALDEN PIERCE, [facility] Amended: Links added.
[2020-03-16] MEDS: MEROPENEM 1 GM VIAL IVP SCH (14:21)
--- NOTE | 2020-03-16 16:00 | NUR ---
GABINO CERVANTES RN FROM WOUND CARE HERE TO EVALUATE PT. HE MEASURED WOUND TO LEFT BUTTOCK MEASURING 1X 0.2 X 4 AND DEPTH TUNNELING AT 6 OCLOCK =1, AT 1200 OCLOCK =1, AT 0OCLOCK =1.5. TO RIGHT BUTTOCK 3.5 X 4.3 X 2. HE LEFT RECOMMENDATION ORDERS FOR WOUND CARE.
--- NOTE | 2020-03-16 16:00 | NUR ---
[facility] CONSULT PATIENT ASSESSED REQUESTED: [facility] RECOMMENDATIONS SUBMITTED AND REPORT GIVEN TO PATIENT'S NURSE. Addendum: 03/17/20 at 0759 by EILEEN CORMIER LVN Amended: Links added.
--- NOTE | 2020-03-16 16:10 | NUR ---
LEFT BUTTOCK : CLEASE WITH SALINE : PACK WITH 1/4 IODOFORM DAILY AND PRN STIP GAUZE, GAUZE AND TAPE', RT BUTTOCK CLEANSE WITH SALINE, PACK WITH MEDIHONEY IMPREGNATE GAUZE, COVER WITH GAUZE, SECURE WITH TAPE
[2020-03-16 16:20] VITALS: BP 131/76
--- NOTE | 2020-03-16 16:53 | NUR ---
TIGIST NOTE/IA UNABLE TO MEET WITH PATIENT IN ROOM. SPOUSE, TRACEY MCQUEEN, CALLED. PER SPOUSE, PATIENT IS INDEPENDENT WITH ADLS, LIVES WITH SPOUSE AND ADULT DAUGHTER, NO DME IN USE, AND FEELS SAFE FOR PATIENT TO RETURN HOME AFTER HOSPITAL DISCHARGE. Addendum: 03/16/20 at 1654 by TYRON BAIRD RN CM Amended: Links added.
[2020-03-16] MEDS: HONEY 1 APPL/ML TUBE TP SCH (19:59)
--- NOTE | 2020-03-16 20:21 | NUR ---
AMBULATED THROUGHOUT THE DAY SEVERAL TIMES. Addendum: 03/16/20 at 2020 by JANINE RAMIREZ RN RN Amended: Links added.
[2020-03-16 20:30] VITALS: BP 126/70
[2020-03-16] MEDS: VANCOMYCIN 750MG + NS 250 ML IV SCH ×2 (21:40)
[2020-03-16] MEDS: INSULIN GLARGINE 100 UNITS/ML 10 ML VIAL SQ SCH (21:47)
[2020-03-17] VITALS (7 sets, daily range): BP systolic 109–162; BP diastolic 55–75
[2020-03-17] MEDS: MEROPENEM 1 GM VIAL IVP SCH ×2 (01:45→13:00)
[2020-03-17 05:17] LABS: BASOPHILS % (AUTO) 0.8 % (0.0-5.0); EOSINOPHILS % (AUTO) 4.7 % (0.0-8.0); HEMATOCRIT 29.2 % (36-48); MEAN CORPUSCULAR HEMOGLOBIN 29.1 pg (27.0-33.0); MEAN CORPUSCULAR HGB CONC 31.8 g/dL (32.0-36.0); MEAN CORPUSCULAR VOLUME 91.3 fL (79-99); MONOCYTES % (AUTO) 9.2 % (3.0-13.0); NEUTROPHILS % (AUTO) 33.8 % (40.0-77.0); PLATELET COUNT (AUTO) 517 K/uL (130-400); RED CELL DISTRIBUTION WIDTH 15.7 % (11.0-15.5); WHITE BLOOD COUNT (AUTO) 8.9 K/uL (4.8-10.8)
[2020-03-17 05:43] LABS: ALBUMIN 1.9 g/dL (3.5-5.0); BILIRUBIN,TOTAL 0.2 mg/dL (0.2-1.0); CREATININE 1.3 mg/dL (0.5-1.5); CRP QUANTITATIVE 19.7 mg/L (0.00-9.0); POTASSIUM 3.5 mmol/L (3.5-5.1)
[2020-03-17] MEDS: INSULIN LISPRO 100 UNIT/ML 3ML SQ SCH ×7 (06:09→21:00)
[2020-03-17] MEDS: METRONIDAZOLE 500MG/100ML BAG 100 ML IV SCH ×3 (06:09→22:00)
--- NOTE | 2020-03-17 07:59 | NUR ---
SKIN WOUNDS TO BILATERAL BUTTOCK AREA. DRESSINGS TO SITE DRY AND INTACT. Addendum: 03/17/20 at 0802 by KALI CORNELIUS RN Amended: Links added.
[2020-03-17] MEDS: FAMOTIDINE 20MG TAB 20 MG TAB PO SCH ×2 (08:02→21:00)
[2020-03-17] MEDS: ENOXAPARIN SODIUM 40 MG/0.4 ML SYRINGE SQ SCH (08:04)
[2020-03-17] MEDS: VANCOMYCIN 750MG + NS 250 ML IV SCH ×4 (08:05→21:00)
[2020-03-17] MEDS ORDERED: POTASSIUM CHLORIDE 20 MEQ ERTAB PO SCH (15:00)
[2020-03-17] MEDS: HONEY 1 APPL/ML TUBE TP SCH ×2 (15:07→15:28)
--- NOTE | 2020-03-17 15:07 | NUR ---
WOUND CARE WOUND CARE DONE TO LEFT BUTTOCK PACKED WITH 1/4 INCHE IODOFORM PACKING STRIP PT SHELIA WELL. MODERATE AMOUNT OF SEROUSANGINOUS DRAINAGE NOTED. RIGHT BUTTOCK WOUND CLEANSE WITH NS GUCCINEY APPIED. PT SHELIA PROCEDURE WELL.
[2020-03-17] MEDS ORDERED: CADEXOMER IODINE 40 GM GEL TP SCH (15:25)
--- NOTE | 2020-03-17 19:17 | NUR ---
REPORT REPORT GIVEN TO KIMMY VAUGHAN INCOMING NURSE. PT RESTING IN BED,NO DISTRESS NOTED PTDENIED ANY PAIN OR DISCOMFORTS
[2020-03-17] MEDS: INSULIN GLARGINE 100 UNITS/ML 10 ML VIAL SQ SCH (21:00)
[2020-03-18 00:07] VITALS: BP 145/68
[2020-03-18] MEDS: MEROPENEM 1 GM VIAL IVP SCH ×2 (04:01→13:50)
[2020-03-18 04:15] VITALS: BP 125/54
[2020-03-18] MEDS: METRONIDAZOLE 500MG/100ML BAG 100 ML IV SCH ×3 (05:58→23:06)
[2020-03-18] MEDS: ACETAMINOPHEN-CODEINE 300/30MG TAB PO PRN ×2 (06:12→16:00)
[2020-03-18] MEDS: ONDANSETRON HCL 4 MG/2 ML VIAL IV PRN (06:27)
--- NOTE | 2020-03-18 06:27 | NUR ---
ZOFRAN GIVEN D/T FEELING NAUSEOUS AND FEELING THE NEED TO VOMIT. ALSO GIVEN TYLENOL/CODEINE D/T Pt C/O FLANK PAIN. NO TEMP. TEMP IS 98.2. Pt HAS CHILLS.
[2020-03-18] MEDS: INSULIN LISPRO 100 UNIT/ML 3ML SQ SCH ×7 (06:29→21:00)
[2020-03-18 07:12] LABS: BASOPHILS % (AUTO) 0.7 % (0.0-5.0); EOSINOPHILS % (AUTO) 2.5 % (0.0-8.0); HEMATOCRIT 33.2 % (36-48); LYMPHOCYTES % (AUTO) 46.6 % (21.0-51.0); MEAN CORPUSCULAR HEMOGLOBIN 28.8 pg (27.0-33.0); MEAN CORPUSCULAR VOLUME 92.7 fL (79-99); MONOCYTES % (AUTO) 5.8 % (3.0-13.0); PLATELET COUNT (AUTO) 582 K/uL (130-400); RED BLOOD CELL COUNT(AUTO) 3.58 MIL/uL (4.00-5.50); RED CELL DISTRIBUTION WIDTH 15.9 % (11.0-15.5); WHITE BLOOD COUNT (AUTO) 12.1 K/uL (4.8-10.8)
[2020-03-18 07:26] LABS: CREATININE 1.4 mg/dL (0.5-1.5); CRP QUANTITATIVE 8.7 mg/L (0.00-9.0); MAGNESIUM 1.8 mg/dL (1.80-2.40); PHOSPHORUS 4.3 mg/dL (2.5-4.9); POTASSIUM 3.8 mmol/L (3.5-5.1)
[2020-03-18 08:00] VITALS: BP 152/79
[2020-03-18 08:47] LABS: ERYTHROCYTE SEDIMENTATION RATE 102 MM/HR (0-30)
[2020-03-18] MEDS: FAMOTIDINE 20MG TAB 20 MG TAB PO SCH ×2 (09:40→21:16)
[2020-03-18] MEDS: VANCOMYCIN 750MG + NS 250 ML IV SCH ×4 (09:40→21:16)
[2020-03-18] MEDS: HONEY 1 APPL/ML TUBE TP SCH ×2 (09:41→17:08)
[2020-03-18] MEDS: ENOXAPARIN SODIUM 40 MG/0.4 ML SYRINGE SQ SCH (09:41)
[2020-03-18 12:34] VITALS: BP 155/70
[2020-03-18 17:22] VITALS: BP 142/70
[2020-03-18 20:00] VITALS: BP_SYST 125; BP_SYST 136; BP_DIAS 45; BP_DIAS 67
[2020-03-18] MEDS: INSULIN GLARGINE 100 UNITS/ML 10 ML VIAL SQ SCH (22:03)
[2020-03-19] MEDS: ONDANSETRON HCL 4 MG/2 ML VIAL IV PRN (00:12)
[2020-03-19 00:13] VITALS: BP 151/57
[2020-03-19] MEDS: MEROPENEM 1 GM VIAL IVP SCH ×2 (01:10→14:08)
[2020-03-19 05:43] VITALS: BP 114/45
[2020-03-19] MEDS: METRONIDAZOLE 500MG/100ML BAG 100 ML IV SCH ×3 (05:45→21:43)
[2020-03-19] MEDS: INSULIN LISPRO 100 UNIT/ML 3ML SQ SCH ×7 (06:05→19:56)
[2020-03-19 07:47] VITALS: BP 121/66
[2020-03-19] MEDS: FAMOTIDINE 20MG TAB 20 MG TAB PO SCH ×2 (09:04→19:56)
[2020-03-19] MEDS: VANCOMYCIN 750MG + NS 250 ML IV SCH ×4 (09:04→19:55)
[2020-03-19] MEDS: ENOXAPARIN SODIUM 40 MG/0.4 ML SYRINGE SQ SCH (09:05)
[2020-03-19] MEDS: HONEY 1 APPL/ML TUBE TP SCH ×2 (09:07→16:57)
[2020-03-19 12:00] VITALS: BP 104/41
[2020-03-19 17:00] VITALS: BP 116/63
[2020-03-19] MEDS: INSULIN GLARGINE 100 UNITS/ML 10 ML VIAL SQ SCH (19:57)
[2020-03-19 19:59] VITALS: BP 126/58
[2020-03-19] MEDS ORDERED: SODIUM CHLORIDE 0.9% 100 ML IV ONE (21:24)
[2020-03-20] VITALS (7 sets, daily range): BP systolic 105–176; BP diastolic 35–92
[2020-03-20] MEDS: MEROPENEM 1 GM VIAL IVP SCH ×2 (02:18→13:58)
[2020-03-20 03:48] LABS: BASOPHILS % (AUTO) 0.6 % (0.0-5.0); EOSINOPHILS % (AUTO) 1.9 % (0.0-8.0); HEMATOCRIT 30.3 % (36-48); LYMPHOCYTES % (AUTO) 42.2 % (21.0-51.0); MEAN CORPUSCULAR HEMOGLOBIN 29.4 pg (27.0-33.0); MEAN CORPUSCULAR HGB CONC 32.3 g/dL (32.0-36.0); MONOCYTES % (AUTO) 9.5 % (3.0-13.0); NEUTROPHILS % (AUTO) 45.4 % (40.0-77.0); PLATELET COUNT (AUTO) 504 K/uL (130-400); RED BLOOD CELL COUNT(AUTO) 3.33 MIL/uL (4.00-5.50); RED CELL DISTRIBUTION WIDTH 15.6 % (11.0-15.5); WHITE BLOOD COUNT (AUTO) 13.9 K/uL (4.8-10.8)
[2020-03-20 05:44] LABS: ERYTHROCYTE SEDIMENTATION RATE 120 MM/HR (0-30)
[2020-03-20] MEDS: METRONIDAZOLE 500MG/100ML BAG 100 ML IV SCH ×3 (06:15→21:42)
[2020-03-20] MEDS: INSULIN LISPRO 100 UNIT/ML 3ML SQ SCH ×7 (06:16→21:00)
[2020-03-20 06:25] LABS: CREATININE 1.6 mg/dL (0.5-1.5); POTASSIUM 3.8 mmol/L (3.5-5.1)
[2020-03-20] MEDS: FAMOTIDINE 20MG TAB 20 MG TAB PO SCH ×2 (09:29→21:42)
[2020-03-20] MEDS: VANCOMYCIN 750MG + NS 250 ML IV SCH ×2 (09:31)
[2020-03-20] MEDS: ENOXAPARIN SODIUM 40 MG/0.4 ML SYRINGE SQ SCH (09:32)
[2020-03-20] MEDS: HONEY 1 APPL/ML TUBE TP SCH ×2 (09:32→18:20)
[2020-03-20 12:21] LABS: CRP QUANTITATIVE 212.6 mg/L (0.00-9.0)
[2020-03-20] MEDS: INSULIN GLARGINE 100 UNITS/ML 10 ML VIAL SQ SCH (21:00)
--- NOTE | 2020-03-21 00:32 | NUR ---
received report from CLEMENT king, and patient arrived on the floor at 00:25. she is alert and oriented x 3. she walks without difficulty, i explained the plan for her and she verbalizes understanding.
[2020-03-21] MEDS: MEROPENEM 1 GM VIAL IVP SCH ×2 (00:37→14:22)
[2020-03-21] MEDS: METRONIDAZOLE 500MG/100ML BAG 100 ML IV SCH ×2 (03:59→14:22)
[2020-03-21 04:22] VITALS: BP 150/90
[2020-03-21] MEDS: INSULIN LISPRO 100 UNIT/ML 3ML SQ SCH ×6 (06:17→18:24)
[2020-03-21 06:36] LABS: BASOPHILS % (AUTO) 0.6 % (0.0-5.0); EOSINOPHILS % (AUTO) 1.4 % (0.0-8.0); HEMATOCRIT 30.8 % (36-48); LYMPHOCYTES % (AUTO) 46.8 % (21.0-51.0); MEAN CORPUSCULAR HEMOGLOBIN 29.4 pg (27.0-33.0); MEAN CORPUSCULAR HGB CONC 32.8 g/dL (32.0-36.0); MEAN CORPUSCULAR VOLUME 89.5 fL (79-99); MONOCYTES % (AUTO) 6.3 % (3.0-13.0); NEUTROPHILS % (AUTO) 44.5 % (40.0-77.0); PLATELET COUNT (AUTO) 553 K/uL (130-400); RED BLOOD CELL COUNT(AUTO) 3.44 MIL/uL (4.00-5.50); RED CELL DISTRIBUTION WIDTH 14.9 % (11.0-15.5); WHITE BLOOD COUNT (AUTO) 12.2 K/uL (4.8-10.8)
[2020-03-21 07:03] LABS: ALBUMIN 2.1 g/dL (3.5-5.0); BILIRUBIN,TOTAL 0.2 mg/dL (0.2-1.0); CREATININE 1.3 mg/dL (0.5-1.5); POTASSIUM 3.8 mmol/L (3.5-5.1)
[2020-03-21 07:44] VITALS: BP 137/74
[2020-03-21] MEDS: FAMOTIDINE 20MG TAB 20 MG TAB PO SCH (08:34)
[2020-03-21] MEDS: ENOXAPARIN SODIUM 40 MG/0.4 ML SYRINGE SQ SCH (08:34)
[2020-03-21] MEDS: HONEY 1 APPL/ML TUBE TP SCH ×2 (08:35→18:02)
[2020-03-21 10:44] VITALS: BP 128/66
[2020-03-21 18:06] VITALS: BP 179/83
--- NOTE | 2020-03-21 18:35 | NUR ---
DRESSING CHANGED RIGHT BUTTOCK DRESSING CLEANED WITH NS THEN APPLIED 4X4 TO AREA. LEFT BUTTOCKS DRESSING IDOFORM 1/4 IN WITH 4X4 BOTH DRY AND INTACT.
--- NOTE | 2020-03-21 19:04 | NUR ---
D/C PER DR. GOLDSMITH PATIENT CAN BE D/C HOME WITH NO ANTIBIOTICS. TO F/U WITH PRIMARY 2-3 DAYS
--- NOTE | 2020-03-21 19:23 | NUR ---
WOUND CARE PT STATED THAT HER SON WILL BE CHANGING HER WOUNDS AT HOME. HE WAS SHOWN HOW TO DO THE DRESSING CHANGE LAST PATIENT VISIT. I EXPLAINED AND SHOWED HER HOW TO CHANGE DRESSING.
--- NOTE | 2020-03-21 19:30 | NUR ---
D/C PT LEFT VIA WHEEL CHAIR. SHE IS A/A X 3 NO COMPLICATIONS UPON D/C, V/S STABLE DRESSING TO BOTH BUTTOCKS ARE DRY AND INTACT. PT IS AWARE TO MAKE APPT. WITH PC IN 2-3 DAY.
== END 2020-03-21 19:20 | disposition home or self-care (01) | DRG 871 ==
LOC: EDH 17:22 → EDHIP 17:23 → DAHIP 23:24 → 3DH 03-20 23:45
PROVIDERS: ADMIT Internal Medicine; ATTEND Internal Medicine
DX: A41.9 Sepsis, unspecified organism (principal); E11.10 Type 2 diabetes mellitus with ketoacidosis without coma; L02.31 Cutaneous abscess of buttock; L03.317 Cellulitis of buttock; E87.1 Hypo-osmolality and hyponatremia; Z16.24 Resistance to multiple antibiotics; N10 Acute pyelonephritis; I10 Essential (primary) hypertension; H40.9 Unspecified glaucoma; E87.6 Hypokalemia; E78.5 Hyperlipidemia, unspecified; E66.01 Morbid (severe) obesity due to excess calories; E11.40 Type 2 diabetes mellitus with diabetic neuropathy, unspecified; E11.65 Type 2 diabetes mellitus with hyperglycemia; B96.89 Other specified bacterial agents as the cause of diseases classified elsewhere; B95.5 Unspecified streptococcus as the cause of diseases classified elsewhere; B96.20 Unspecified Escherichia coli [E. coli] as the cause of diseases classified elsewhere; Z79.4 Long term (current) use of insulin; Z68.36 Body mass index [BMI] 36.0-36.9, adult; Z79.899 Other long term (current) drug therapy
CPT/HCPCS: 36415; 76882; 80048; 80053; 80202; 81001; 81025; 82010; 82728; 82948; 83036; 83605; 83735; 84100; 84145; 84484; 85025; 85610; 85651; 85730; 86140; 87040; 87070; 87076; 87077; 87088; 87186; G0378; J1650; J1815; J1885; J1956; J2185; J2405; J3370; J3490; J7030; J7050

== ENCOUNTER 2020-04-02 20:22 | Inpatient (IN) | payer SELFPAY ==
[~2020-04-02] VITALS: Ht 162.6 cm; Wt 97.5 kg
[2020-04-02 21:02] LABS: BASOPHILS % (AUTO) 0.5 % (0.0-5.0); EOSINOPHILS % (AUTO) 0.1 % (0.0-8.0); HEMATOCRIT 33.3 % (36-48); MEAN CORPUSCULAR HEMOGLOBIN 29.6 pg (27.0-33.0); MEAN CORPUSCULAR HGB CONC 31.8 g/dL (32.0-36.0); MONOCYTES % (AUTO) 8.8 % (3.0-13.0); NEUTROPHILS % (AUTO) 61.6 % (40.0-77.0); PLATELET COUNT (AUTO) 535 K/uL (130-400); RED BLOOD CELL COUNT(AUTO) 3.58 MIL/uL (4.00-5.50); RED CELL DISTRIBUTION WIDTH 15.6 % (11.0-15.5)
[2020-04-02] MEDS ORDERED: CEFTRIAXONE SODIUM 1 GM ONE (21:04)
[2020-04-02 21:06] LABS: WHITE BLOOD COUNT (AUTO) 36.5 K/uL (4.8-10.8)
[2020-04-02 21:10] LABS: APPEARANCE,URINE CLOUDY (CLEAR); BILIRUBIN,URINE NEGATIVE (NEGATIVE); COLOR,URINE YELLOW (YELLOW); GLUCOSE, URINE (UA) 250 mg/dL (NEGATIVE); KETONES,URINE NEGATIVE (NEGATIVE); LEUKOCYTE ESTERASE ,URINE LARGE (NEGATIVE); NITRATE,URINE NEGATIVE (NEGATIVE); OCCULT BLOOD,URINE SMALL (NEGATIVE); PROTEIN,URINE TRACE mg/dL (NEGATIVE); UROBILINOGEN,URINE 0.2 mg/dL (0.2-1.0)
[2020-04-02] MEDS ORDERED: ONDANSETRON HCL 4 MG/2 ML VIAL ONE (21:20)
[2020-04-02] MEDS ORDERED: MORPHINE SULFATE 4 MG/1ML SYG ONE (21:20)
[2020-04-02 21:24] LABS: CREATININE 1.8 mg/dL (0.5-1.5); HCG,QUAL RESULT NEGATIVE (NEGATIVE); POTASSIUM 4.4 mmol/L (3.5-5.1)
[2020-04-02 21:28] LABS: ALBUMIN 2.5 g/dL (3.5-5.0); BACTERIA,URINE Few /HPF (None Seen); BILIRUBIN,TOTAL 0.5 mg/dL (0.2-1.0); RBC,URINE 0-1 /HPF (0-1); SQUAMOUS EPITHELIAL CELL,UR None Seen /HPF (0-2); TOTAL PROTEIN, SERUM 8.8 g/dL (6.0-8.3); WBC,URINE >100 /HPF (0-1)
[2020-04-02 21:40] LABS: BAND NEUTROPHILS % (MANUAL) 4 % (0-2); EOSINOPHILS % (MANUAL) 1 % (1-6); LYMPHOCYTES % (MANUAL) 34 % (22-44); MAN.DIFF COMMENT-IMPRESSION MANUAL DIFFERENTIAL; MONOCYTES % (MANUAL) 11 % (2-9); SEGMENTED NEUTROPHILS % 50 % (40-70)
[2020-04-02] MEDS ORDERED: HYDROCODONE/ACETAMINOPHEN 5/325 MG TAB PO PRN ×2 (22:45)
[2020-04-02] MEDS ORDERED: SODIUM CHLORIDE 0.9% 1000ML 1,000 ML IV SCH (22:45)
[2020-04-02] MEDS ORDERED: ONDANSETRON HCL 4 MG/2 ML VIAL IV PRN (22:45)
[2020-04-02] MEDS ORDERED: ACETAMINOPHEN 325 MG TAB ONE (22:46)
[2020-04-02] MEDS: SODIUM CHLORIDE 0.9% 1000ML 1,000 ML IV SCH (22:52)
[2020-04-02] MEDS ORDERED: MEROPENEM 1 GM VIAL ONE (22:58)
[2020-04-03] VITALS: BP 104/51
[2020-04-03] MEDS ORDERED: HYDRALAZINE HCL 20 MG/ML VIAL IV PRN
--- NOTE | 2020-04-03 03:29 | NUR ---
PAGED ELECTRONIC REPAIR TROUBLESHOOTER INFORMED UMER HERNANDEZ OF ELEVATED HR 125-127. ORDERS WERE GIVEN TO PLACE PT ON TELEMETRY MONITORING AND TREAT FEVERS NEEDED. WILL PLACE AND CARRY OUT ORDERS.
[2020-04-03 04:11] VITALS: BP 131/57
[2020-04-03] MEDS: ACETAMINOPHEN 325 MG TAB PO PRN ×2 (04:19→12:17)
--- NOTE | 2020-04-03 04:25 | NUR ---
DYE REEL OPERATOR ADMIN TYLENOL PER UMER DO'S RECOMMENDATIONS TO REDUCE HEART RATE SECONDARY TO ELEVATED TEMP. WILL CONT TO MONITOR.
[2020-04-03 05:20] LABS: HEMATOCRIT 27.6 % (36-48); MEAN CORPUSCULAR HEMOGLOBIN 28.9 pg (27.0-33.0); MEAN CORPUSCULAR HGB CONC 31.5 g/dL (32.0-36.0); MEAN CORPUSCULAR VOLUME 91.7 fL (79-99); RED BLOOD CELL COUNT(AUTO) 3.01 MIL/uL (4.00-5.50); RED CELL DISTRIBUTION WIDTH 15.7 % (11.0-15.5); WHITE BLOOD COUNT (AUTO) 24.3 K/uL (4.8-10.8)
[2020-04-03] MEDS: SODIUM CHLORIDE 0.9% 1000ML 1,000 ML IV SCH ×2 (05:27→20:35)
[2020-04-03 05:30] LABS: HEMOGLOBIN A1C 10.5 % (4.0-6.0)
[2020-04-03 05:42] LABS: CREATININE 1.6 mg/dL (0.5-1.5); POTASSIUM 4.3 mmol/L (3.5-5.1)
[2020-04-03] MEDS: INSULIN HUMULIN R 100 UNIT/ML 3ML SQ SCH ×4 (06:03→20:30)
[2020-04-03 08:00] VITALS: BP 101/69
[2020-04-03] MEDS ORDERED: INSULIN GLARGINE 100 UNITS/ML 10 ML VIAL SQ SCH (11:22)
--- NOTE | 2020-04-03 12:00 | NUR ---
INDIRECT SALES REPRESENTATIVE ADMIN TYLENOL PER UMER DO'S RECOMMENDATIONS TO REDUCE HEART RATE SECONDARY TO ELEVATED TEMP. WILL CONT TO MONITOR. PT REQUESTED TYLENOL.
[2020-04-03 12:06] VITALS: BP 155/80
[2020-04-03] MEDS: MEROPENEM 1 GM VIAL IVP SCH ×2 (12:16)
[2020-04-03 16:00] VITALS: BP 101/55
--- NOTE | 2020-04-03 16:17 | NUR ---
iNITIAL SW spoke with patient's spouse, Vincent Vaughan. Patient lives with spouse. No home services. DME: BPM, glucometer (uses insulin). Patient needs help with ADL's but doesn't drive. PCP is Dr. Dev Varela at [facility]. Pharmacy is [facility]. DCP is home. Patient has no insurance or benefits. She is a [place] citizen and has worked in the [place] the past. SW educated patient's spouse [facility] $4 medication program and [facility] $5 medication program. Patient is being assisted by [employer] for financial matters. Addendum: 04/03/20 at 1620 by ANTONINO RÍOS Amended: Links added.
--- NOTE | 2020-04-03 19:00 | NUR ---
HOME MEDICATIONS ENTERED. PT STATES TO BE TAKING 75 UNITS OF LEVEMIR BID AT HOME, DR JONES AWARE. PT LEVEMIR PEN DOES NOT HAVE A DOSAGE NOR BOX STATES USING [facility] IN [place]. UNABLE TO REACH [facility] TODAY BECAUSE ITS A WEEKEND. NIGHT NURSE ESTRELLA,CLEMENT MADE AWARE TO ADVICE AM NURSE TO CALL [facility] FOR MED LIST PER DR JONES.
[2020-04-03] MEDS ORDERED: LISI10TA7 PO (20:09)
[2020-04-03] MEDS ORDERED: PRAV20TA4 PO (20:09)
[2020-04-03 20:24] VITALS: BP 149/78
[2020-04-04] VITALS (7 sets, daily range): BP systolic 126–144; BP diastolic 58–78
[2020-04-04] MEDS: MEROPENEM 1 GM VIAL IVP SCH ×2 (00:04→12:08)
[2020-04-04] MEDS: INSULIN HUMULIN R 100 UNIT/ML 3ML SQ SCH ×4 (05:29→20:43)
[2020-04-04] MEDS: SODIUM CHLORIDE 0.9% 1000ML 1,000 ML IV SCH ×2 (06:09→22:52)
[2020-04-04 06:51] LABS: BASOPHILS % (AUTO) 0.6 % (0.0-5.0); EOSINOPHILS % (AUTO) 0.9 % (0.0-8.0); HEMATOCRIT 27.4 % (36-48); LYMPHOCYTES % (AUTO) 22.3 % (21.0-51.0); MEAN CORPUSCULAR HEMOGLOBIN 30.2 pg (27.0-33.0); MEAN CORPUSCULAR HGB CONC 32.5 g/dL (32.0-36.0); MEAN CORPUSCULAR VOLUME 92.9 fL (79-99); MONOCYTES % (AUTO) 8.5 % (3.0-13.0); NEUTROPHILS % (AUTO) 67.1 % (40.0-77.0); PLATELET COUNT (AUTO) 443 K/uL (130-400); RED BLOOD CELL COUNT(AUTO) 2.95 MIL/uL (4.00-5.50); RED CELL DISTRIBUTION WIDTH 15.3 % (11.0-15.5); WHITE BLOOD COUNT (AUTO) 16.2 K/uL (4.8-10.8)
[2020-04-04 07:03] LABS: CREATININE 1.3 mg/dL (0.5-1.5); MAGNESIUM 1.9 mg/dL (1.80-2.40); POTASSIUM 3.7 mmol/L (3.5-5.1)
[2020-04-04] MEDS ORDERED: INSULIN GLARGINE 100 UNITS/ML 10 ML VIAL SQ SCH (09:00)
--- NOTE | 2020-04-04 10:05 | NUR ---
Temp 99.5 ORAL IV right forearm leaking DCd restarted iv left iner forearm x 1 attempt
--- NOTE | 2020-04-04 14:43 | NUR ---
[facility] CONSULT PATIENT ASSESSED REQUESTED: [facility] RECOMMENDATIONS SUBMITTED AND REPORT GIVEN TO PATIENT'S NURSE. Addendum: 04/04/20 at 1444 by EILEEN CORMIER LVN Amended: Links added.
[2020-04-04] MEDS ORDERED: DOCUSATE SODIUM 100 MG CAP PO SCH (18:45)
[2020-04-04] MEDS ORDERED: POLYETHYLENE GLYCOL 3350 17 GM POWD.PACK PO SCH (18:50)
[2020-04-04] MEDS: SENNOSIDES 8.6 MG TABLET PO SCH (20:43)
[2020-04-04] MEDS: HONEY 1 APPL/ML TUBE TP SCH (21:12)
[2020-04-05] MEDS: MEROPENEM 1 GM VIAL IVP SCH ×2 (01:51→12:00)
[2020-04-05 03:22] VITALS: BP 134/66
[2020-04-05] MEDS: INSULIN HUMULIN R 100 UNIT/ML 3ML SQ SCH ×4 (05:22→20:19)
[2020-04-05] MEDS: SODIUM CHLORIDE 0.9% 1000ML 1,000 ML IV SCH ×3 (06:45→22:52)
[2020-04-05 08:25] VITALS: BP 139/80
[2020-04-05] MEDS: SENNOSIDES 8.6 MG TABLET PO SCH ×2 (09:29→20:19)
[2020-04-05] MEDS: POLYETHYLENE GLYCOL 3350 17 GM POWD.PACK PO SCH (09:36)
[2020-04-05] MEDS: HONEY 1 APPL/ML TUBE TP SCH (09:37)
[2020-04-05 11:19] VITALS: BP 155/84
[2020-04-05 11:22] LABS: HEMATOCRIT 28.4 % (36-48); MEAN CORPUSCULAR HEMOGLOBIN 29.5 pg (27.0-33.0); MEAN CORPUSCULAR HGB CONC 32.4 g/dL (32.0-36.0); RED BLOOD CELL COUNT(AUTO) 3.12 MIL/uL (4.00-5.50); RED CELL DISTRIBUTION WIDTH 14.6 % (11.0-15.5); WHITE BLOOD COUNT (AUTO) 11.7 K/uL (4.8-10.8)
--- NOTE | 2020-04-05 11:30 | NUR ---
PING R NOT GIVE PT ALREADY HAD EATEN
[2020-04-05 11:31] LABS: CREATININE 1.3 mg/dL (0.5-1.5); POTASSIUM 3.7 mmol/L (3.5-5.1)
[2020-04-05 11:37] LABS: BILIRUBIN,TOTAL 0.2 mg/dL (0.2-1.0); TOTAL PROTEIN, SERUM 7.9 g/dL (6.0-8.3)
--- NOTE | 2020-04-05 12:25 | NUR ---
RD NOTIFICATION Pt admitted with sepsis. Pt tolerating 75gm CCD with no report of GI distress, Good PO intake at 100%. S/p Debridement. Pt with wound infection. Obesity Class II (BMI 36.4). BG 237, ALT 11, Alb 2.0. Recommend 60gm CCD Recommend 500mg Vitamin C(BID), 220mg Zinc (QD) Recommend 60mL Promod QD RD to continue to monitor. Please notify as additional nutrition concerns arise. thank you. Addendum: 04/05/20 at [address] Amended: Links added.
[2020-04-05 17:06] VITALS: BP 158/82
[2020-04-05 20:00] VITALS: BP 135/80
[2020-04-06] VITALS: BP 149/84
[2020-04-06] MEDS: MEROPENEM 1 GM VIAL IVP SCH ×3 (00:06→23:48)
[2020-04-06] MEDS: ACETAMINOPHEN 325 MG TAB PO PRN ×2 (03:08→23:49)
--- NOTE | 2020-04-06 03:40 | NUR ---
HEADACHE Pt medicated with Tylenol for c/o of headache.
[2020-04-06 04:00] VITALS: BP 140/73
[2020-04-06] MEDS: SODIUM CHLORIDE 0.9% 1000ML 1,000 ML IV SCH ×3 (05:05→23:48)
[2020-04-06 05:29] LABS: APPEARANCE,URINE Cloudy (CLEAR); BILIRUBIN,URINE Negative (NEGATIVE); COLOR,URINE Yellow (YELLOW); GLUCOSE, URINE (UA) Negative (NEGATIVE); KETONES,URINE Negative (NEGATIVE); LEUKOCYTE ESTERASE ,URINE Large (NEGATIVE); NITRATE,URINE Negative (NEGATIVE); OCCULT BLOOD,URINE Negative (NEGATIVE); PH,URINE 5.5 (5.0-8.0); PROTEIN,URINE Trace mg/dL (NEGATIVE); UROBILINOGEN,URINE 0.2 mg/dL (0.2-1.0)
[2020-04-06 05:39] LABS: BACTERIA,URINE Few /HPF (None Seen); WBC,URINE 26-50 /HPF (0-1)
[2020-04-06 05:40] LABS: SQUAMOUS EPITHELIAL CELL,UR Moderate /HPF (0-2)
[2020-04-06] MEDS: INSULIN HUMULIN R 100 UNIT/ML 3ML SQ SCH ×4 (06:14→21:00)
[2020-04-06 08:00] VITALS: BP 146/74
[2020-04-06] MEDS: POLYETHYLENE GLYCOL 3350 17 GM POWD.PACK PO SCH (08:59)
[2020-04-06] MEDS: HONEY 1 APPL/ML TUBE TP SCH (09:00)
[2020-04-06] MEDS: SENNOSIDES 8.6 MG TABLET PO SCH ×2 (09:00→21:41)
[2020-04-06 11:57] VITALS: BP 140/76
[2020-04-06 16:00] VITALS: BP 148/68
[2020-04-06 20:00] VITALS: BP 153/77
[2020-04-07] VITALS: BP 137/65
--- NOTE | 2020-04-07 02:54 | NUR ---
STATUS Pt resting in bed,respirations even and unlabored.
[2020-04-07 04:00] VITALS: BP 140/49
[2020-04-07] MEDS: INSULIN HUMULIN R 100 UNIT/ML 3ML SQ SCH ×4 (06:10→22:07)
[2020-04-07 08:00] VITALS: BP 151/73
[2020-04-07] MEDS: POLYETHYLENE GLYCOL 3350 17 GM POWD.PACK PO SCH (09:00)
--- NOTE | 2020-04-07 10:00 | NUR ---
CM NOTE/[facility] MEET WITH PATIENT IN ROOM. DISCUSSED DC PLANNING WITH NEW ORDER FOR INVANZ 1GM IV DAILY X14 DAYS. PER PATIENT, HAS TRANSPORTATION TO AND FROM HOME TO [facility]. CATARINO COMPLETED. THIS CM TO SET UP INVANZ IV, PATIENT PENDING APPROVAL FOR THIS WELL PICC LINE. PRIMARY NURSE, DADA ARELLANO, AWARE.
[2020-04-07] MEDS: SENNOSIDES 8.6 MG TABLET PO SCH ×2 (10:06→22:06)
[2020-04-07] MEDS: MEROPENEM 1 GM VIAL IVP SCH (11:34)
[2020-04-07 12:00] VITALS: BP 134/71
[2020-04-07] MEDS ORDERED: [UNRECOGNIZED DRUG - REMARK] MISC SCH (15:45)
[2020-04-07 16:00] VITALS: BP 153/70
[2020-04-07] MEDS: HONEY 1 APPL/ML TUBE TP SCH (17:06)
[2020-04-07 17:30] LABS: INR 0.92 (0.85-1.15)
[2020-04-07 20:08] VITALS: BP 133/67
[2020-04-07] MEDS ORDERED: INSULIN GLARGINE 100 UNITS/ML 10 ML VIAL SQ SCH (21:00)
[2020-04-08 00:08] VITALS: BP 155/63
[2020-04-08] MEDS: MEROPENEM 1 GM VIAL IVP SCH ×2 (00:58→11:35)
[2020-04-08 04:08] VITALS: BP 128/61
[2020-04-08 05:21] LABS: BASOPHILS % (AUTO) 0.7 % (0.0-5.0); EOSINOPHILS % (AUTO) 3.3 % (0.0-8.0); LYMPHOCYTES % (AUTO) 44.2 % (21.0-51.0); MEAN CORPUSCULAR HEMOGLOBIN 29.1 pg (27.0-33.0); MEAN CORPUSCULAR HGB CONC 32.1 g/dL (32.0-36.0); MEAN CORPUSCULAR VOLUME 90.6 fL (79-99); MONOCYTES % (AUTO) 6.5 % (3.0-13.0); NEUTROPHILS % (AUTO) 44.4 % (40.0-77.0); PLATELET COUNT (AUTO) 538 K/uL (130-400); RED CELL DISTRIBUTION WIDTH 14.6 % (11.0-15.5)
[2020-04-08 05:44] LABS: CREATININE 1.1 mg/dL (0.5-1.5); POTASSIUM 3.6 mmol/L (3.5-5.1)
[2020-04-08] MEDS: INSULIN HUMULIN R 100 UNIT/ML 3ML SQ SCH ×2 (06:03→11:35)
[2020-04-08 08:11] VITALS: BP 144/73
[2020-04-08] MEDS: SENNOSIDES 8.6 MG TABLET PO SCH (08:40)
[2020-04-08] MEDS: POLYETHYLENE GLYCOL 3350 17 GM POWD.PACK PO SCH (08:40)
[2020-04-08] MEDS: HONEY 1 APPL/ML TUBE TP SCH (08:41)
[2020-04-08 12:00] VITALS: BP 138/63
--- NOTE | 2020-04-08 13:52 | NUR ---
[facility] SET UP SPOKE WITH RITCHIE DICKEY, [facility] DIRECTOR. NEW APPOINTMENT FOR [facility] INFUSION WILL BE 04/11/2020 AT 11AM. PER TANMAY DAVID,ER DIRECTOR, INVANZ INFUSION TO BE DONE IN ER DEPARTMENT ON SATURDAY AND SATURDAY, PATIENT TO SHOW UP TO DEPARTMENT AT 0900 AM AND ASK FOR REECE. PATIENT PENDING [facility] IV INFUSION TODAY AND DC HOME THEN RETURN TO [facility] DEPARTMENTS ON WEEK AND WEEKEND FOR INFUSIONS. PRIMARY NURSE, AMY ARELLANO, AWARE. INSTRUCTIONS FOR APPOINTMENTS WRITTEN IN DISCHARGE PAPERWORK BY THIS CM.
[2020-04-08] MEDS ORDERED: METF-444 PO (15:44)
--- NOTE | 2020-04-08 16:08 | NUR ---
INSTRUCTIONS DISCHARGE INSTRUCTIONS GIVEN TO PATIENT USING TEACH BACK. NEW PRESCRIPTION ELECTRONICALLY SENT TO PATIENT'S PREFERRED PHARMACY. SHE WILL BE COMING TO ER ON THE WEEKEND FOR IV ANTIBIOTICS, THEN SHE WILL BE COMING TO [facility] FOR IV ANTIBIOTICS FROM SATURDAY THROUGH SATURDAY UNTIL FINISHED. NO QUESTIONS OR CONCERNS VOICED. PENDING RIDE HOME.
[2020-04-09] MEDS ORDERED: ERTAPENEM SODIUM 1 GM in SODIUM CHLORIDE 0.9% 50 ML IV SCH (10:00)
== END 2020-04-08 16:25 | disposition home or self-care (01) | DRG 872 ==
LOC: EDH 20:22 → EDHIP 20:23 → 3DH 04-03 00:10
PROVIDERS: ADMIT Internal Medicine; ATTEND Internal Medicine
DX: A41.50 Gram-negative sepsis, unspecified (principal); N10 Acute pyelonephritis; L02.31 Cutaneous abscess of buttock; Z16.12 Extended spectrum beta lactamase (ESBL) resistance; E11.9 Type 2 diabetes mellitus without complications; I10 Essential (primary) hypertension; E78.5 Hyperlipidemia, unspecified; B96.89 Other specified bacterial agents as the cause of diseases classified elsewhere; E66.9 Obesity, unspecified; L98.419 Non-pressure chronic ulcer of buttock with unspecified severity; R65.20 Severe sepsis without septic shock; Z86.19 Personal history of other infectious and parasitic diseases; Z68.36 Body mass index [BMI] 36.0-36.9, adult
CPT/HCPCS: 36415; 74176; 80048; 80053; 81001; 81025; 82948; 83036; 83605; 83690; 83735; 84145; 84484; 85025; 85027; 85610; 87040; 87077; 87088; 87186; 93005; 99291; C1894; G0378; J0696; J1335; J1815; J2185; J2270; J2405; J7030

== ENCOUNTER 2021-04-22 20:22 | Inpatient (IN) | payer SELFPAY ==
[~2021-04-22] VITALS: Ht 162.6 cm; Wt 110.2 kg
[~2021-04-22 20:22] MED LIST: LISI10TA24 PO; METF-444 PO; PRAV20TA4 PO
[2021-04-22 20:44] VITALS: BP 171/92
[2021-04-22] MEDS ORDERED: ACETAMINOPHEN WITH CODEINE 1 TAB TAB PO ONE (21:00)
[2021-04-22] MEDS ORDERED: ALBUTEROL INHALER 90MCG/INH IH PRN (21:00)
[2021-04-22 21:34] LABS: BASOPHILS % (AUTO) 0.7 % (0.0-5.0); EOSINOPHILS % (AUTO) 7.3 % (0.0-8.0); LYMPHOCYTES % (AUTO) 30.2 % (21.0-51.0); MEAN CORPUSCULAR HEMOGLOBIN 30.3 pg (27.0-33.0); MEAN CORPUSCULAR HGB CONC 33.5 g/dL (32.0-36.0); MEAN CORPUSCULAR VOLUME 90.5 fL (79-99); MONOCYTES % (AUTO) 6.9 % (3.0-13.0); PLATELET COUNT (AUTO) 449 K/uL (130-400); RED BLOOD CELL COUNT(AUTO) 4.42 MIL/uL (4.00-5.50); RED CELL DISTRIBUTION WIDTH 13.1 % (11.0-15.5)
[2021-04-22 21:50] LABS: POTASSIUM 3.7 mmol/L (3.5-5.1)
[2021-04-22 21:55] VITALS: BP 162/64
[2021-04-22 21:55] LABS: ALBUMIN 3.3 g/dL (3.5-5.0); BILIRUBIN,TOTAL 0.3 mg/dL (0.2-1.0); CRP QUANTITATIVE 29.3 mg/L (0.00-9.0); TOTAL PROTEIN, SERUM 8.8 g/dL (6.0-8.3)
[2021-04-22 21:58] LABS: B-TYPE NATRIURETIC PEPTIDE 6 pg/mL (0-100)
[2021-04-22] MEDS: LEVOFLOXACIN 500 MG/D5W 100 ML 100 ML IV SCH (22:00)
[2021-04-22 22:01] LABS: BAND NEUTROPHILS % (MANUAL) 1 % (0-2); EOSINOPHILS % (MANUAL) 6 % (1-6); LYMPHOCYTES % (MANUAL) 27 % (22-44); MONOCYTES % (MANUAL) 6 % (2-9); REACTIVE LYMPHOCYTES 1 % (0-0); SEGMENTED NEUTROPHILS % 59 % (40-70)
[2021-04-22 22:02] LABS: MAN.DIFF COMMENT-IMPRESSION MANUAL DIFFERENTIAL
[2021-04-22 22:03] LABS: PLATELET MORPHOLOGY COMMENT ADEQUATE
[2021-04-22 22:09] LABS: APPEARANCE,URINE Cloudy (CLEAR); BILIRUBIN,URINE Negative (NEGATIVE); COLOR,URINE Yellow (YELLOW); GLUCOSE, URINE (UA) >=1000 mg/dL (NEGATIVE); KETONES,URINE Negative (NEGATIVE); LEUKOCYTE ESTERASE ,URINE Large (NEGATIVE); NITRATE,URINE Positive (NEGATIVE); OCCULT BLOOD,URINE Trace (NEGATIVE); PH,URINE 5.5 (5.0-8.0); PROTEIN,URINE Trace mg/dL (NEGATIVE); UROBILINOGEN,URINE 0.2 mg/dL (0.2-1.0)
[2021-04-22 22:20] LABS: BACTERIA,URINE Few /HPF (None Seen); RBC,URINE 0-1 /HPF (0-1); SQUAMOUS EPITHELIAL CELL,UR Moderate /HPF (0-2); WBC,URINE TNTC /HPF (0-1)
[2021-04-22] MEDS ORDERED: 0.9%NACL 1000ML 1,000 ML IV ONE (22:30)
[2021-04-22] MEDS ORDERED: INSULIN HUMULIN R 100 UNIT/ML 3ML SQ ONE (22:30)
[2021-04-22] MEDS ORDERED: LEVOFLOXACIN 500 MG/D5W 100 ML 100 ML ONE (22:35)
[2021-04-22] MEDS ORDERED: ONDANSETRON 4MG INJ IV PRN (23:00)
[2021-04-22] MEDS ORDERED: INSULIN HUMULIN R 100 UNIT/ML 3ML IV ONE (23:00)
[2021-04-22] MEDS ORDERED: HYDRALAZINE 20MG/ML VIAL IV PRN (23:00)
[2021-04-22] MEDS ORDERED: ACETAMINOPHEN 325 MG TAB PO PRN (23:00)
[2021-04-22] MEDS ORDERED: MORPHINE 4 MG SYG IV PRN (23:00)
[2021-04-23] MEDS: 0.9%NACL 1000ML 1,000 ML IV SCH ×3 (00:26→17:13)
[2021-04-23] MEDS ORDERED: LACTATED RINGERS 1000ML 1,641 ML IV ONE (02:00)
[2021-04-23 03:22] VITALS: BP 109/56
[2021-04-23 06:05] LABS: BASOPHILS % (AUTO) 0.8 % (0.0-5.0); EOSINOPHILS % (AUTO) 8.8 % (0.0-8.0); HEMATOCRIT 35.2 % (36-48); MEAN CORPUSCULAR HEMOGLOBIN 30.2 pg (27.0-33.0); MEAN CORPUSCULAR HGB CONC 32.7 g/dL (32.0-36.0); MEAN CORPUSCULAR VOLUME 92.4 fL (79-99); MONOCYTES % (AUTO) 7.6 % (3.0-13.0); PLATELET COUNT (AUTO) 346 K/uL (130-400); RED BLOOD CELL COUNT(AUTO) 3.81 MIL/uL (4.00-5.50); RED CELL DISTRIBUTION WIDTH 13.3 % (11.0-15.5); WHITE BLOOD COUNT (AUTO) 18.8 K/uL (4.8-10.8)
[2021-04-23 06:28] LABS: MAGNESIUM 1.9 mg/dL (1.80-2.40); PHOSPHORUS 3.4 mg/dL (2.5-4.9); POTASSIUM 4.7 mmol/L (3.5-5.1); THYROID STIMULATING HORMONE 3.12 uIU/mL (0.36-3.74)
[2021-04-23] MEDS ORDERED: INSULIN HUMULIN R 100 UNIT/ML 3ML SQ SCH ×3 (07:30→17:00)
[2021-04-23 09:18] VITALS: BP 130/52
[2021-04-23] MEDS: FAMOTIDINE 20MG TAB PO SCH (09:18)
[2021-04-23] MEDS: HEPARIN 5,000 UNIT VIAL SQ SCH ×3 (09:18→20:42)
[2021-04-23 10:48] VITALS: BP 145/74
[2021-04-23] MEDS ORDERED: RENAL DOSE IV SCH (11:30)
[2021-04-23] MEDS: MEROPENEM 500 MG VIAL IVP SCH (11:53)
[2021-04-23] MEDS ORDERED: ALBUTEROL INHALER 90MCG/INH IH PRN (12:30)
[2021-04-23 13:16] LABS: HEMOGLOBIN A1C 10.1 % (4.0-6.0)
[2021-04-23 15:00] VITALS: BP 125/74
[2021-04-23] MEDS: METOPROLOL TARTRATE 25 MG TAB PO SCH (20:42)
[2021-04-23 20:43] VITALS: BP 148/48
[2021-04-23] MEDS: INSULIN HUMULIN R 100 UNIT/ML 3ML SQ SCH (21:39)
[2021-04-23] MEDS: INSULIN GLARGINE 100 UNITS/ML 10 ML VIAL SQ SCH (21:39)
[2021-04-23] MEDS: LEVOFLOXACIN 500 MG/D5W 100 ML 100 ML IV SCH (23:40)
[2021-04-24] MEDS: MEROPENEM 500 MG VIAL IVP SCH ×2 (00:19→11:49)
[2021-04-24] MEDS: 0.9%NACL 1000ML 1,000 ML IV SCH ×3 (01:31→17:38)
[2021-04-24] MEDS: INSULIN GLARGINE 100 UNITS/ML 10 ML VIAL SQ SCH ×2 (07:24→20:49)
[2021-04-24] MEDS: INSULIN HUMULIN R 100 UNIT/ML 3ML SQ SCH ×8 (07:24→20:49)
[2021-04-24 08:30] VITALS: BP 154/74
[2021-04-24] MEDS: HEPARIN 5,000 UNIT VIAL SQ SCH ×3 (08:39→20:49)
[2021-04-24] MEDS: FAMOTIDINE 20MG TAB PO SCH (08:39)
[2021-04-24] MEDS: METOPROLOL TARTRATE 25 MG TAB PO SCH ×2 (08:39→20:48)
[2021-04-24 09:52] LABS: BASOPHILS % (AUTO) 0.7 % (0.0-5.0); EOSINOPHILS % (AUTO) 11.5 % (0.0-8.0); HEMATOCRIT 34.8 % (36-48); LYMPHOCYTES % (AUTO) 25.9 % (21.0-51.0); MEAN CORPUSCULAR HEMOGLOBIN 29.9 pg (27.0-33.0); MEAN CORPUSCULAR VOLUME 90.6 fL (79-99); MONOCYTES % (AUTO) 8.3 % (3.0-13.0); PLATELET COUNT (AUTO) 342 K/uL (130-400); RED BLOOD CELL COUNT(AUTO) 3.84 MIL/uL (4.00-5.50); RED CELL DISTRIBUTION WIDTH 13.2 % (11.0-15.5); WHITE BLOOD COUNT (AUTO) 15.1 K/uL (4.8-10.8)
[2021-04-24 10:03] LABS: ALBUMIN 2.6 g/dL (3.5-5.0); BILIRUBIN,TOTAL 0.2 mg/dL (0.2-1.0); CREATININE 1.4 mg/dL (0.5-1.5); POTASSIUM 3.8 mmol/L (3.5-5.1); TOTAL PROTEIN, SERUM 7.5 g/dL (6.0-8.3)
[2021-04-24 12:00] VITALS: BP 129/86
[2021-04-24 18:16] VITALS: BP 124/74
[2021-04-24 19:49] VITALS: BP 124/46
[2021-04-24] MEDS: LEVOFLOXACIN 500 MG/D5W 100 ML 100 ML IV SCH (22:39)
[2021-04-24 22:56] VITALS: BP 142/65
[2021-04-24] MEDS ORDERED: GABA-533 PO (23:00)
[2021-04-24] MEDS ORDERED: INSU100V12 SQ (23:00)
[2021-04-24 23:25] VITALS: BP 158/56
[2021-04-25] MEDS: MEROPENEM 500 MG VIAL IVP SCH ×2 (00:03→11:27)
[2021-04-25] MEDS: 0.9%NACL 1000ML 1,000 ML IV SCH ×3 (00:04→16:15)
[2021-04-25 03:59] VITALS: BP 125/56
[2021-04-25 06:00] LABS: BASOPHILS % (AUTO) 0.8 % (0.0-5.0); EOSINOPHILS % (AUTO) 11.4 % (0.0-8.0); HEMATOCRIT 39.8 % (36-48); LYMPHOCYTES % (AUTO) 35.7 % (21.0-51.0); MEAN CORPUSCULAR HEMOGLOBIN 29.8 pg (27.0-33.0); MEAN CORPUSCULAR HGB CONC 32.4 g/dL (32.0-36.0); MEAN CORPUSCULAR VOLUME 91.9 fL (79-99); MONOCYTES % (AUTO) 7.6 % (3.0-13.0); NEUTROPHILS % (AUTO) 43.7 % (40.0-77.0); PLATELET COUNT (AUTO) 353 K/uL (130-400); RED BLOOD CELL COUNT(AUTO) 4.33 MIL/uL (4.00-5.50); WHITE BLOOD COUNT (AUTO) 15.8 K/uL (4.8-10.8)
[2021-04-25 06:19] LABS: ALBUMIN 2.7 g/dL (3.5-5.0); BILIRUBIN,TOTAL 0.2 mg/dL (0.2-1.0); CREATININE 1.3 mg/dL (0.5-1.5); POTASSIUM 4.3 mmol/L (3.5-5.1); TOTAL PROTEIN, SERUM 7.6 g/dL (6.0-8.3)
[2021-04-25] MEDS: INSULIN HUMULIN R 100 UNIT/ML 3ML SQ SCH ×7 (06:35→21:18)
[2021-04-25 07:30] VITALS: BP 122/46
[2021-04-25] MEDS: METOPROLOL TARTRATE 25 MG TAB PO SCH ×2 (09:32→20:21)
[2021-04-25] MEDS: FAMOTIDINE 20MG TAB PO SCH (09:32)
[2021-04-25] MEDS: INSULIN GLARGINE 100 UNITS/ML 10 ML VIAL SQ SCH ×2 (09:33→21:19)
[2021-04-25] MEDS: HEPARIN 5,000 UNIT VIAL SQ SCH ×3 (09:33→21:16)
[2021-04-25 11:00] VITALS: BP 146/70
[2021-04-25 16:00] VITALS: BP 148/64
[2021-04-25 19:51] VITALS: BP 148/81
[2021-04-25 23:23] VITALS: BP 153/70
[2021-04-26] MEDS: MEROPENEM 500 MG VIAL IVP SCH ×2 (00:11→11:28)
[2021-04-26] MEDS: 0.9%NACL 1000ML 1,000 ML IV SCH ×2 (01:12→08:21)
[2021-04-26 03:45] VITALS: BP 131/62
[2021-04-26 05:32] LABS: BASOPHILS % (AUTO) 0.9 % (0.0-5.0); EOSINOPHILS % (AUTO) 12.1 % (0.0-8.0); HEMATOCRIT 34.9 % (36-48); LYMPHOCYTES % (AUTO) 34.4 % (21.0-51.0); MEAN CORPUSCULAR HEMOGLOBIN 30.3 pg (27.0-33.0); MEAN CORPUSCULAR HGB CONC 32.7 g/dL (32.0-36.0); MEAN CORPUSCULAR VOLUME 92.8 fL (79-99); MONOCYTES % (AUTO) 7.7 % (3.0-13.0); NEUTROPHILS % (AUTO) 44.1 % (40.0-77.0); PLATELET COUNT (AUTO) 311 K/uL (130-400); RED BLOOD CELL COUNT(AUTO) 3.76 MIL/uL (4.00-5.50); RED CELL DISTRIBUTION WIDTH 13.2 % (11.0-15.5); WHITE BLOOD COUNT (AUTO) 16.3 K/uL (4.8-10.8)
[2021-04-26 06:07] LABS: ALBUMIN 2.4 g/dL (3.5-5.0); BILIRUBIN,TOTAL 0.2 mg/dL (0.2-1.0); CREATININE 1.4 mg/dL (0.5-1.5); POTASSIUM 4.2 mmol/L (3.5-5.1); TOTAL PROTEIN, SERUM 6.8 g/dL (6.0-8.3)
[2021-04-26] MEDS: INSULIN HUMULIN R 100 UNIT/ML 3ML SQ SCH ×6 (06:34→16:44)
[2021-04-26 07:08] VITALS: BP 131/60
[2021-04-26] MEDS: FAMOTIDINE 20MG TAB PO SCH (08:20)
[2021-04-26] MEDS: METOPROLOL TARTRATE 25 MG TAB PO SCH (08:20)
[2021-04-26] MEDS: INSULIN GLARGINE 100 UNITS/ML 10 ML VIAL SQ SCH (08:25)
[2021-04-26] MEDS: HEPARIN 5,000 UNIT VIAL SQ SCH (08:26)
[2021-04-26 11:09] VITALS: BP 148/61
[2021-04-26 15:38] VITALS: BP 136/68
[2021-04-26] MEDS ORDERED: INSU100V12 SQ (18:33)
[2021-04-26] MEDS ORDERED: METO25 PO (18:33)
[2021-04-26] MEDS ORDERED: LISI10TA24 PO (18:33)
[2021-04-26] MEDS ORDERED: SULF1TAB42 PO (18:33)
[2021-04-26] MEDS ORDERED: INSU100V3 SQ (18:33)
[2021-04-27] MEDS ORDERED: INSULIN GLARGINE 100 UNITS/ML 10 ML VIAL SQ SCH (08:00)
== END 2021-04-26 19:35 | disposition home or self-care (01) | DRG 871 ==
LOC: EDH 20:22 → EDHIP 20:23 → UNDOADMIN 22:58 → 3AH 04-24 21:48
PROVIDERS: ADMIT Internal Medicine; ATTEND Internal Medicine
DX: A41.9 Sepsis, unspecified organism (principal); N17.0 Acute kidney failure with tubular necrosis; Z16.12 Extended spectrum beta lactamase (ESBL) resistance; N39.0 Urinary tract infection, site not specified; N18.9 Chronic kidney disease, unspecified; I12.9 Hypertensive chronic kidney disease with stage 1 through stage 4 chronic kidney disease, or unspecified chronic kidney disease; E11.65 Type 2 diabetes mellitus with hyperglycemia; E11.22 Type 2 diabetes mellitus with diabetic chronic kidney disease; Z20.822 Contact with and (suspected) exposure to COVID-19; E78.5 Hyperlipidemia, unspecified; E11.40 Type 2 diabetes mellitus with diabetic neuropathy, unspecified; B96.20 Unspecified Escherichia coli [E. coli] as the cause of diseases classified elsewhere; Z79.4 Long term (current) use of insulin; Z79.82 Long term (current) use of aspirin; Z79.899 Other long term (current) drug therapy; Z86.19 Personal history of other infectious and parasitic diseases; Z87.440 Personal history of urinary (tract) infections
CPT/HCPCS: 36415; 71045; 71250; 74176; 80048; 80053; 81001; 81025; 82948; 83036; 83605; 83735; 83880; 84100; 84145; 84443; 84484; 85025; 86140; 87040; 87077; 87088; 87186; 87635; 87804; 87880; 93005; C9803; G0378; J1644; J1815; J1956; J2185; J7030; J7120

== ENCOUNTER 2022-07-18 17:17 | Emergency (ER) | payer OTHER ==
[~2022-07-18] VITALS: Ht 162.6 cm; Wt 120.2 kg
[~2022-07-18 17:17] MED LIST changes: +GABA-533 PO; +INSU100V12 SQ; +INSU100V3 SQ; -METF-444 PO; +METO25 PO; +SULF1TAB42 PO
[2022-07-18] MEDS ORDERED: IBUPROFEN 800 MG TAB PO ONE (19:30)
[2022-07-18] MEDS ORDERED: CYCLOBENZAPRINE HCL 10 MG TABLET PO ONE (19:30)
[2022-07-18] MEDS ORDERED: D-ME1POW16 PO (19:30)
[2022-07-18] MEDS ORDERED: GUAIFENESIN-CODEINE 5 ML SYRUP PO ONE (19:30)
[2022-07-18] MEDS ORDERED: ALBU6.7H14 IH (19:30)
[2022-07-18] MEDS ORDERED: IBUP-2071 PO (19:30)
[2022-07-18] MEDS ORDERED: ALBUTEROL INHALER 90MCG/INH IH ONE (19:30)
[2022-07-18 19:36] VITALS: BP 168/69
== END 2022-07-18 19:43 | disposition home or self-care (01) ==
LOC: EDH 17:17
DX: J06.9 Acute upper respiratory infection, unspecified (principal); Z20.822 Contact with and (suspected) exposure to COVID-19; E11.9 Type 2 diabetes mellitus without complications; I10 Essential (primary) hypertension; E66.01 Morbid (severe) obesity due to excess calories; Z88.0 Allergy status to penicillin; Z79.4 Long term (current) use of insulin; Z68.42 Body mass index [BMI] 45.0-49.9, adult
CPT/HCPCS: 99284; 71045; 87635; 87804 ×2; C9803

== ENCOUNTER 2022-09-22 16:28 | Emergency (ER) | payer BC ==
[~2022-09-22] VITALS: Ht 162.6 cm; Wt 117.9 kg
[~2022-09-22 16:28] MED LIST changes: +AMLO5TAB4 PO; +ASPI-1005 PO; +ATOR40TA69 PO; +CLOP-31 PO; -GABA-533 PO; +INSU100I21 SQ; +INSU100I3 SQ; -INSU100V12 SQ; -INSU100V3 SQ; -LISI10TA24 PO; -METO25 PO; -PRAV20TA4 PO; -SULF1TAB42 PO; +TRAZ-253 PO
[2022-09-22 18:00] VITALS: BP 141/78
== END 2022-09-22 18:14 | disposition home or self-care (01) ==
LOC: EDH 16:28
DX: T82.838A Hemorrhage due to vascular prosthetic devices, implants and grafts, initial encounter (principal); I10 Essential (primary) hypertension; E11.9 Type 2 diabetes mellitus without complications; E66.9 Obesity, unspecified; E78.00 Pure hypercholesterolemia, unspecified; N39.0 Urinary tract infection, site not specified; Z88.0 Allergy status to penicillin; Z79.899 Other long term (current) drug therapy; Z79.82 Long term (current) use of aspirin
CPT/HCPCS: 99281

== ENCOUNTER 2022-10-26 03:04 | Emergency (ER) | payer BC ==
[~2022-10-26] VITALS: Ht 162.6 cm; Wt 122.5 kg
[~2022-10-26 03:04] MED LIST changes: -INSU100I21 SQ; +INSU100I22 SQ
[2022-10-26] MEDS ORDERED: SOLU-MEDROL 125MG VIAL IVP ONE (04:30)
[2022-10-26] MEDS ORDERED: SOLU-MEDROL 125MG VIAL ONE (04:47)
[2022-10-26] MEDS ORDERED: METH4TAB3 PO (05:09)
[2022-10-26 05:19] VITALS: BP 172/81
[2022-10-26 05:36] LABS: APPEARANCE,URINE CLEAR (CLEAR); BILIRUBIN,URINE NEGATIVE (NEGATIVE); COLOR,URINE LIGHT-YELLOW (YELLOW); GLUCOSE, URINE (UA) NEGATIVE (NEGATIVE); KETONES,URINE NEGATIVE (NEGATIVE); LEUKOCYTE ESTERASE ,URINE 500 Leu/uL (NEGATIVE); NITRATE,URINE NEGATIVE (NEGATIVE); OCCULT BLOOD,URINE NEGATIVE (NEGATIVE); PH,URINE 5.5 (5.0-8.0); PROTEIN,URINE 10 mg/dL (NEGATIVE); UROBILINOGEN,URINE 0.2 mg/dL (0.2-1.0)
[2022-10-26 05:41] LABS: BACTERIA,URINE RARE /HPF (None Seen); MUCUS,URINE RARE LPF (None Seen); SQUAMOUS EPITHELIAL CELL,UR RARE /HPF (0-2)
== END 2022-10-26 05:23 | disposition home or self-care (01) ==
LOC: EDH 03:04
DX: M79.18 Myalgia, other site (principal); M54.50 Low back pain, unspecified; E66.01 Morbid (severe) obesity due to excess calories; I10 Essential (primary) hypertension; E78.00 Pure hypercholesterolemia, unspecified; E11.9 Type 2 diabetes mellitus without complications; Z68.42 Body mass index [BMI] 45.0-49.9, adult; Z87.440 Personal history of urinary (tract) infections; Z88.0 Allergy status to penicillin; Z79.4 Long term (current) use of insulin; Z79.82 Long term (current) use of aspirin; Z79.899 Other long term (current) drug therapy
CPT/HCPCS: 99284; 96374; 87088; 81001; J2930

== ENCOUNTER 2025-08-14 14:12 | Emergency (ER) | payer BC, OTHER ==
[~2025-08-14] VITALS: Ht 162.6 cm; Wt 111.1 kg
[~2025-08-14 14:12] MED LIST changes: +METH4TAB3 PO
--- NOTE | 2025-08-14 14:29 | ERN ---
ED Note History of Present Illness Stated Complaint: ARM PIN Chief Complaint: Upper Extremity Pain/Injury Time Seen by MD: 14:15 Time Seen by Midlevel: 14:15 Dictation: The patient is a 54-year-old female with a history of diabetes, hyperlipidemia, hypertension, obesity who presents to the emergency department with right wrist pain after a slip and fall while in the shower on . Patient denies any head trauma, denies any LOC, denies any use of blood thinners. Patient denies any other injuries from the fall. Denies chest pain, back pain, abdominal pain. Allergies: Coded Allergies: Penicillins (Verified Allergy, Unknown, 03/01/20) Home Meds Active Scripts Methylprednisolone (Medrol) 4 Mg Tab.ds.pk, 4 MG PO AD for 6 Days, #1 PACK Prov:JOEY ANDERSON MD 10/26/22 Insulin Detemir (Levemir Flextouch) 100 Unit/1 Ml Insuln.pen, 30 UNIT SQ HS for diabetes mellitus for 30 Days, #30 DAYS 3 Refills Prov:REMIGIO LLAMAS Jr., MD 09/18/22 Insulin Aspart (Novolog Flexpen) 100 Unit/1 Ml Insuln.pen, 10 UNITS SQ TIDAC for diabetes mellitus for 30 Days, #30 DAYS 3 Refills Prov:REMIGIO LLAMAS Jr., MD 09/18/22 Trazodone HCl (Desyrel) 50 Mg Tab, 50 MG PO HS for 90 Days, #90 TAB Prov:REMIGIO LLAMAS Jr., MD 09/18/22 Clopidogrel Bisulfate (Plavix) 75 Mg Tablet, 75 MG PO DAILY for 90 Days, #90 TAB Prov:REMIGIO LLAMAS Jr., MD 09/18/22 Atorvastatin Calcium (LIPITOR) 40 Mg Tablet, 40 MG PO HS for 30 Days, #30 TAB 1 Refill Prov:REMIGIO LLAMAS Jr., MD 09/18/22 Aspirin (ASPIRIN 81MG CHEW TAB) 81 Mg Tab.chew, 81 MG PO DAILY for 30 Days, #30 TAB.CHEW Prov:REMIGIO LLAMAS Jr., MD 09/18/22 Amlodipine Besylate (Norvasc 5Mg Tab) 5 Mg Tablet, 10 MG PO DAILY for hypertension for 30 Days, #30 TAB 0 Refills Prov:REMIGIO LLAMAS Jr., MD 09/18/22 Past Medical History Past Medical History: Diabetes-Type II, High Cholesterol, Hypertension, UTI Additional Past Medical Hx: Obesity Surgical History: None Family History: Negative Social History: Negative, Lives with family RN Note Reviewed/Agreed w/PFSH: Yes Review of System Dictation Constitutional: Negative for fever,chills, and weight loss Eyes: Negative for injury, pain,redness, and discharge ENT: Negative for injury,pain or swelling Cardiovascular: Negative for chest pain, palpitations, and edema Respiratory: Negative for shortness of breath, cough, and wheezing, Abdomen/GI: Negative for abdominal pain, nausea, vomiting, diarrhea, and constipation Back: Negative for injury and pain : Negative for injury, bleeding and discharge MS/Extremity: Positive for right wrist pain Skin: Negative for rash, and discoloration Neuro: Negative for headache, weakness, numbness, tingling, and seizure Psych: Negative for suicide ideation, homicidal ideation, and hallucinations Initial Vital Sign VS Vital Signs Date Time Temp Pulse Resp B/P (MAP) Pulse Ox O2 Delivery O2 Flow Rate FiO2 08/14/25 14:15 98.1 91 18 175/83 98 08/14/25 14:21 Room Air* 0 21 Physical Exam Dictation Vital Signs reviewed General Appearance: Alert, oriented x 3, no acute distress, well developed, nourished. Head and Face: non-traumatic. Eyes: PERRL, pink conjunctivas, eyelid no trauma, anterior chamber with arcus senilis. Ears: Pinnas intact and no signs of trauma or erythema ear canals clear and no discharge TM no erythema Nose: No discharge, no bleeding. Oropharynx: Mouth normal, tongue pink. pharynx clear,no erythema, tonsils no exudates, no abscesses noted, mucous membrane moist Neck: Supple, non-tender, no thyromegaly, no masses, no JVD, no bruits Breast:Deferred Chest:No tenderness, no crepitus, no paradoxical movement, no retractions Lungs:Clear, well-ventilated, symmetric, no rales, no wheezing, no rhonchi, no stridor, good breath sounds bilaterally Heart: Regular rate, regular rhythm, no murmur, no gallops Vascular: no peripheral edema, radial pulses 3+ bilaterally Abdomen: Soft, positive bowel sounds, nondistended, no guarding, nontender, no rebound, no masses no hepatomegaly, no splenomegaly, no Camarena's sign, no hernias. Rectal: Deferred Genital: Deferred Neurological: Normal speech, motor function intact, sensory function intact Musculoskeletal: Neck nontender, full range of motion, back nontender, full range of motion, Extremities: nontender, full range of motion , mild swelling to right wrist, bruising noted anterior wrist, cap refill less than 2 seconds patient full range of motion to fingers Skin: Color pink, dry, no turgor, no rash, no lacerations, no abrasions, no contusions. Lymphatic: Deferred Results (Laboratory/Radiology) Laboratory/Radiology REASON: fall ORDERING PHYSICIAN: ARNOLD JOAQUIN FIELD CONSULTANT PROCEDURE: WRST 3V RT - WRIST COMP 3+VWS RT EXAM: CR right Wrist, 3 View. CLINICAL HISTORY: fall COMPARISON: None provided. FINDINGS: Mildly displaced, comminuted intra-articular fracture of the distal radius with dorsal tilt of the distal fracture fragment. Suspected nondisplaced fracture of the ulnar styloid process. Soft tissue edema about the wrist and at the dorsal aspect of the proximal forearm. IMPRESSION: 1. Mildly displaced, comminuted intra-articular fracture of the distal radius with dorsal tilt; suspected nondisplaced fracture of the ulnar styloid process. 2. Soft tissue edema about the wrist and proximal forearm. /[place] REASON: fall ORDERING PHYSICIAN: ARNOLD JOAQUIN FIELD CONSULTANT PROCEDURE: FORARMR - FOREARM 2VWS RT EXAM: CR right Forearm, 2 View. CLINICAL HISTORY: fall COMPARISON: None provided. FINDINGS: Mildly displaced, comminuted intra-articular fracture of the distal radius with dorsal tilt of the distal fracture fragment. Suspected nondisplaced fracture of the ulnar styloid process. Soft tissue edema about the wrist and at the dorsal aspect of the proximal forearm. IMPRESSION: 1. Mildly displaced, comminuted intra-articular fracture of the distal radius with dorsal tilt of the distal fracture fragment. Suspected nondisplaced fracture of the ulnar styloid process. 2. Soft tissue edema about the wrist and proximal forearm. /[place] Labs Reviewed?: Yes ED Course ED Course Orders Procedure Category Date Status Time Wrist Comp 3+Vws Rt RAD 08/14/25 Resulted 14:25 Forearm 2vws Rt RAD 08/14/25 Resulted 14:25 Hydrocodone/Apap PHA 08/14/25 Complete 5/325 ([place] 5/325mg) 14:30 Ketorolac 60mg/2ml PHA 08/14/25 Complete (Toradol 60mg/2ml) 14:30 *Nursing CPOE 08/14/25 Transmitted Communication: 15:30 Current Medications Medications (Trade) Dose Ordered Sig/Rashaad Route PRN Reason Start Time Stop Time Status Last Admin Dose Admin Acetaminophen/ Hydrocodone Bitart (NORco 5/325MG) 1 tab ONCE ONCE PO 08/14/25 14:30 08/14/25 14:31 DC 08/14/25 14:32 Ketorolac Tromethamine (toRADol 60MG/ 2ML) 60 mg ONCE ONCE IM 08/14/25 14:30 08/14/25 14:31 DC 08/14/25 14:32 Vital Signs Date Time Temp Pulse Resp B/P (MAP) Pulse Ox O2 Delivery O2 Flow Rate FiO2 08/14/25 14:21 98.8 88 19 159/96 98 Room Air* 0 21 08/14/25 14:15 98.1 91 18 175/83 98 Medical Decision Making MDM The patient is a 54-year-old female with a history of diabetes, hyperlipidemia, hypertension, obesity who presents to the emergency department with right wrist pain after a slip and fall while in the shower on . Patient denies any head trauma, denies any LOC, denies any use of blood thinners. Patient denies any other injuries from the fall. Denies chest pain, back pain, abdominal pain. X-ray showed mildly displaced comminuted intra-articular fracture of the distal radius with a suspected nondisplaced fracture of the ulnar styloid process. No open wounds. Patient with good distal pulses, full range of motion to fingers, neurovascularly intact. Patient will be splinted and instructed to follow up with ortho. Patient otherwise in no acute distress, no other obvious injuries from the fall. There is no trauma to head, face, chest abdomen or any other part of the body. Patient neurologically intact, stable vital signs. Differential diagnosis: Wrist fracture, wrist contusion, wrist dislocation Need for hospitalization: Patient does not meet criteria for hospitalization. There are no social concerns with this patient. DX & DISP Disposition: Discharge Departure Impression: Primary Impression: Right wrist fracture Additional Impressions: Distal radius fracture, right, Distal end of ulna fracture, closed Condition: Stable Scripts Meloxicam (Meloxicam) 15 Mg Tablet 1 TAB PO DAILY for 10 Days, #10 TAB 0 Refills Prov: ARNOLD JOAQUIN FIELD CONSULTANT 08/14/25 Additional Instructions: mitchell tomografia ensena alejandro fractura de mitchell raul. Tendra que ir con un especialis ta que esta apuntado en marcela papeles. Continue con la imobilizazion que le an puesto en emergencia. visite a mitchell doctore de cabezera en 1-2 fink y con el orthopedio lo mas pronto possible. Si llega a tener dolor haim, o no puede sentir o manager nursing home los dedos o cambian de color regrese a emergencia. FOLLOW-UP WITH PRIMARY CARE PROVIDER IN 1 TO 2 DAYS. TAKE MEDICATIONS DIRECTED HERE IN THE EMERGENCY ROOM. OKAY TO CONTINUE HOME MEDICATIONS UNLESS OTHERWISE DISCUSSED DURING YOUR VISIT IN THE EMERGENCY ROOM TODAY. RETURN TO YOUR NEAREST EMERGENCY ROOM IF SYMPTOMS WORSEN OR IF THERE IS NO IMPROVEMENT. CALL 911 IF YOU NEED IMMEDIATE ASSISTANCE. TAKE TYLENOL [id number] NEEDED AND IF NO CONTRAINDICATIONS ARE PRESENT. INCREASE ORAL HYDRATION. A WOUND CULTURE OR URINE CULTURE WAS ORDERED HERE IN THE EMERGENCY ROOM DEPARTMENT PLEASE FOLLOW-UP WITH PRIMARY CARE PROVIDER AND ADVISE THEM TO GET REPEAT PORTS FROM OUR FACILITY. IF YOU HAD ANY GATO WRAP/SPLINTS THAT WERE APPLIED HERE, PLEASE DO NOT REMOVE THEM UNTIL YOU SEE YOUR PRIMARY CARE OR SPECIALTY. Referrals: DANNY WILLAMS M.D. (PCP) SWATHI ARROYO MD Time of Disposition: 15:56 I have reviewed the case, and I agree with, Diagnosis and Plan ARNOLD JOAQUIN UMER Aug 14, 2025 14:29
[2025-08-14] MEDS: HYDROcodone/APAP 5/325 1 TAB TABLET PO ONE (14:32)
--- NOTE | 2025-08-14 15:31 | HMCIMG ---
EXAM: CR right Wrist, 3 View. CLINICAL HISTORY: fall COMPARISON: None provided. FINDINGS: Mildly displaced, comminuted intra-articular fracture of the distal radius with dorsal tilt of the distal fracture fragment. Suspected nondisplaced fracture of the ulnar styloid process. Soft tissue edema about the wrist and at the dorsal aspect of the proximal forearm. IMPRESSION: 1. Mildly displaced, comminuted intra-articular fracture of the distal radius with dorsal tilt; suspected nondisplaced fracture of the ulnar styloid process. 2. Soft tissue edema about the wrist and proximal forearm. /[place]
--- NOTE | 2025-08-14 15:31 | HMCIMG ---
EXAM: CR right Forearm, 2 View. CLINICAL HISTORY: fall COMPARISON: None provided. FINDINGS: Mildly displaced, comminuted intra-articular fracture of the distal radius with dorsal tilt of the distal fracture fragment. Suspected nondisplaced fracture of the ulnar styloid process. Soft tissue edema about the wrist and at the dorsal aspect of the proximal forearm. IMPRESSION: 1. Mildly displaced, comminuted intra-articular fracture of the distal radius with dorsal tilt of the distal fracture fragment. Suspected nondisplaced fracture of the ulnar styloid process. 2. Soft tissue edema about the wrist and proximal forearm. /[place]
--- NOTE | 2025-08-14 15:56 | NUR ---
PER ER MARKETING STRATEGY MANAGER, SUGAR TONG SPLINT OF ORTHOGLASS APPLIED TO PATIENT'S RIGHT ARM. DISTAL PULSE AND CAPILLARY REFILL ARE NORMAL. PATIENT AND FAMILY AT BEDSIDE EDUCATED ON SPLINT CARE AND VERBALIZED UNDERSTANDING.
[2025-08-14 15:57] VITALS: BP 160/92; PULSE 82; RESP 19; TEMP 98.8; O2SAT 99
[2025-08-14] MEDS ORDERED: MELO-108 PO (15:58)
== END 2025-08-14 16:49 | disposition home or self-care (01) ==
LOC: EDH 14:12
DX: S52.571A Other intraarticular fracture of lower end of right radius, initial encounter for closed fracture (principal); S52.691A Other fracture of lower end of right ulna, initial encounter for closed fracture; E11.9 Type 2 diabetes mellitus without complications; E78.00 Pure hypercholesterolemia, unspecified; I10 Essential (primary) hypertension; E66.9 Obesity, unspecified; Z68.41 Body mass index [BMI] 40.0-44.9, adult; Z88.0 Allergy status to penicillin; Z79.899 Other long term (current) drug therapy; Z79.82 Long term (current) use of aspirin; Z79.4 Long term (current) use of insulin; Z79.02 Long term (current) use of antithrombotics/antiplatelets; Z87.440 Personal history of urinary (tract) infections; W01.198A Fall on same level from slipping, tripping and stumbling with subsequent striking against other object, initial encounter; Y93.89 Activity, other specified; Y92.89 Other specified places as the place of occurrence of the external cause; Y99.8 Other external cause status
CPT/HCPCS: 99284; 73090; 73110; 96372; 29125; J1885; 29126